=== PATIENT | male | born 1950 | race Caucasian/White ===

== ENCOUNTER 2017-03-31 18:38 | Observation (INO) | payer MEDICARE, MEDICAID ==
[2017-03-31 19:33] LABS: #Basophils 0.1 thou/uL (0.0-0.2); #Eosinphils 0.1 thou/uL (0.0-0.7); #Lymphocytes 1.7 thou/uL (1.20-3.40); #Monocytes 0.8 thou/uL (0.11-0.59); #Neutrophils 4.5 thou/uL (1.40-6.50); %Lymphocytes 23.7 % (21.0-51.0); %Monocytes 10.9 % (0.0-10.0); Mean Platelet Volume 6.5 fL (7.4-10.4); Red Blood Cell (RBC) Count 4.85 mill/uL (4.70-6.10); White Blood Cell (WBC) Count 7.3 thou/uL (4.8-10.8)
[2017-03-31] MEDS ORDERED: Acetaminophen 500 MG TAB ONE (19:43)
[2017-03-31] MEDS ORDERED: Ketorolac Tromethamine 30 MG/ML VIAL ONE (19:43)
--- NOTE | 2017-03-31 19:49 | RAD ---
CHEST PA AND LATERAL: 03/31/17 HISTORY: 66-year-old male with cough and shortness of breath and chest pain. COMPARISON: 07/21/16. FINDINGS: Heart size is within normal limits. The lungs are clear. No evidence of pneumonia, edema, pleural ef fusion, or other acute intrathoracic disease. IMPRESSION: No acute intrathoracic disease. Stable from prior study. POS: [facility]
[2017-03-31 19:59] LABS: ALT (SGPT) 28 U/L (8-55); AST (SGOT) 19 U/L (5-34); Alkaline Phosphatase 73 U/L (40-150); Anion Gap 12 mmol/L (10-20); BUN (Urea Nitrogen) 10 mg/dL (8.4-25.7); Bilirubin, Total 0.3 mg/dL (0.2-1.2); Calc. Creatinine Clearance 0 mL/min (70-130); Calcium 9.2 mg/dL (7.8-10.44); Carbon Dioxide 26 mmol/L (23-31); Chloride 100 mmol/L (98-107); Estimated GFR-MDRD 81; Globulin 3.2 g/dL (2.4-3.5); Protein, Total 7.2 g/dL (5.8-8.1)
[2017-03-31 20:00] LABS: Troponin I 0.059 ng/mL (< 0.028)
[2017-03-31] MEDS ORDERED: hydrALAZINE 20 MG/ML VIAL ONE (22:11)
--- NOTE | 2017-03-31 22:33 | PDOC.EVN ---
Event Note - Event Note Event Note: [id number] 1. Headache 2. chest pain 3. HTN uncontrolled 4, H/O SCIZOAFFECTIVE DISORDER 5. dm TYPE 2 PLAN: SEE ORDERS
--- NOTE | 2017-03-31 22:44 | CT ---
EXAM: NONCONTRAST HEAD CT 03/31/17 HISTORY: Headache x4 days. Hypertension. COMPARISON: None. TECHNIQUE: Noncontrast head CT is performed from skull base to skull vertex. FINDINGS: No parenchymal hemorrhage. No extra-axial hematoma. No midline shift. Basilar cisterns are patent. B rain volume, age appropriate. Cortical sultana-white matter differentiation is preserved. Ventricles and sulci are patent and symmetric. Calvarium is intact. Adequate aeration of mastoid air cells. There is bilateral maxillary sinus, bilateral sphenoid sinus, and frontal sinus/ethmoid air cell opacification. Correlate for sinus disease. IMPRESSION: 1. No acute intracranial process. 2. Sinus disease. POS: [facility]
[2017-03-31 23:11] LABS: Troponin I Less than 0.010 ng/mL (< 0.028)
[2017-03-31] MEDS ORDERED: Acetaminophen 325 MG TAB PO PRN (23:31)
[2017-03-31] MEDS ORDERED: HYDROcodone/Acetaminophen 5/325 mg Tablet PO PRN (23:31)
[2017-03-31] MEDS ORDERED: Ondansetron HCl/PF 4 MG/2 ML Vial IVP PRN (23:31)
[2017-03-31] MEDS ORDERED: Fluticasone Propionate Nasal Spray 16 gm Bottle NASAL PRN (23:34)
[2017-03-31] MEDS ORDERED: ALPRAZolam 0.5 MG TAB PO PRN (23:34)
[2017-03-31] MEDS ORDERED: HumaLOG 300 UNITS/3 ML VIAL SC PRN ×2 (23:36)
[2017-03-31] MEDS ORDERED: Dextrose 50% Abboject 50 ML SYRINGE SLOW IVP PRN (23:36)
[2017-03-31] MEDS ORDERED: Dextrose 5% in Water 1,000 ML IV PRN (23:36)
[2017-04-01 00:08] VITALS: BMI 32.2
[2017-04-01] MEDS: Acetaminophen/Codeine 30-300mg Tablet PO PRN ×3 (00:35→14:50)
[2017-04-01 01:26] LABS: Troponin I Less than 0.010 ng/mL (< 0.028)
--- NOTE | 2017-04-01 02:47 | HP ---
CHIEF COMPLAINT: Headache and chest pain. HISTORY OF PRESENT ILLNESS: Patient is a 66-year-old male with past medical history of schizoaffect kemar disorder, BPH, diabetes mellitus type 2, hypertension and anxiety, who came in today complaining of headache. Patient says he is having headache for the past 3 days. Headache is all over, dull k ind of headache, associated with nausea. Patient stated his headache is more like migraine headache , had similar headaches in the past also. Patient also complains of elevated blood pressure. Blood pressure at home was elevated, so he came to the ER. He complaints of chest pain. Chest pain has persisted for the past several months, intermittent, spasm kind of pain, mild in intensity, no aggra vating factors, no alleviating factors. Today, the pain got worse that is why he came to the ER. D enies any fever, denies any chills. Positive for nausea. Denies any vomiting, denies any diarrhea. PAST MEDICAL HISTORY: As per HPI. PAST SURGICAL HISTORY: Urethral dilatation. SOCIAL HISTORY: Denies smoking, denies alcohol, denies any drugs. FAMILY HISTORY: Positive for heart problems. MEDICATIONS: Reviewed. REVIEW OF SYSTEMS: Constitutional: Denies any fever, denies any chills. Eyes: Denies any vision problems. Ears: Denies any hearing loss. Neck: Denies any neck pain. Cardiovascular System: Po sitive for chest pain. Respiratory System: Denies any cough, denies sputum production. Gastrointe stinal: Denies nausea, denies vomiting. Integumentary: Denies any rash. Musculoskeletal: Denies any joint deformities. All other review of systems are reviewed and are negative. PHYSICAL EXAMINATION: CONSTITUTIONAL/VITAL SIGNS: At the time of H\T\P performed, blood pressure is 170/118, respiration 18 and pulse ox 97%. GENERAL: The patient appears comfortable. HEENT: Pupils are equal, round and reactive. Anterior nares patent. Nose normal. Ears normal. T eeth intact. Tongue is moist. NECK: Supple. No JVD. CARDIOVASCULAR SYSTEM: S1 and S2 present. Regular rate and rhythm. No murmurs, no rubs, no gallop s. RESPIRATORY SYSTEM: No wheezing, no rhonchi. Breath sounds bilaterally. GASTROINTESTINAL: Abdomen is soft and nontender. No guarding, no organomegaly, no masses felt. MUSCULOSKELETAL: No edema. INTEGUMENT: No rashes seen. PSYCHIATRIC: Mood is appropriate at this time. CRANIAL NERVOUS SYSTEM: Cranial nerve is intact. Follows commands. Strength is intact. Sensory i s intact. LABORATORY DATA: At the time of H\T\P performed, white count 7.3, hemoglobin 14.7 and platelet coun t is 269. Sodium 134, potassium 2.9, chloride 100, CO2 of 26, BUN of 10, creatinine 0.93, glucose 2 64, calcium 9.2, total bilirubin 0.3, AST 19, ALT 28, alkaline phosphatase 73, troponin 0.59 and alb umin 4. ASSESSMENT AND PLAN: The patient is a 66-year-old male. 1. Chest pain appears chronic. EKG showed some Q-waves in lead I and aVL, poor R-wave progression. Plan to monitor the patient closely. Plan to check cardiac enzymes. 2. Hypertension, uncontrolled. Monitor blood pressure. Continue home blood pressure medications. We will do p.r.n. hydralazine. 3. Headache. Plan to check CTA to rule out any other etiology. 4. History of diabetes mellitus type 2. Monitor blood sugars. We will do insulin sliding scale. The case was discussed in detail with the patient. Patient is a FULL CODE.
[2017-04-01 05:06] LABS: #Eosinphils 0.2 thou/uL (0.0-0.7); #Lymphocytes 1.9 thou/uL (1.20-3.40); #Monocytes 0.7 thou/uL (0.11-0.59); %Basophils 0.7 % (0.0-1.0); %Eosinophils 2.6 % (0.0-10.0); %Lymphocytes 32.5 % (21.0-51.0); %Monocytes 12.1 % (0.0-10.0); Hematocrit 42.4 % (42.0-52.0); Mean Platelet Volume 6.4 fL (7.4-10.4); White Blood Cell (WBC) Count 5.8 thou/uL (4.8-10.8)
[2017-04-01 05:30] LABS: Anion Gap 12 mmol/L (10-20); BUN (Urea Nitrogen) 7 mg/dL (8.4-25.7); Calc. Creatinine Clearance 118 mL/min (70-130); Calcium 8.5 mg/dL (7.8-10.44); Carbon Dioxide 26 mmol/L (23-31); Chloride 104 mmol/L (98-107); Estimated GFR-MDRD Greater than 90
[2017-04-01 05:32] LABS: Troponin I Less than 0.010 ng/mL (< 0.028)
[2017-04-01] MEDS ORDERED: metFORMIN 500 MG TAB PO SCH (08:15)
[2017-04-01] MEDS ORDERED: Mometasone/Formoterol 120 PUFF INHALER INH SCH ×2 (08:15→18:30)
[2017-04-01] MEDS ORDERED: glipiZIDE 5 MG TAB PO SCH (09:00)
[2017-04-01] MEDS ORDERED: Venlafaxine HCl 37.5 MG TAB PO SCH (09:00)
[2017-04-01] MEDS ORDERED: FLU VACC TS2017-18 (>65YR) 0.5 ML SYRINGE IM ONE (09:00)
[2017-04-01] MEDS ORDERED: Metoprolol Tartrate 25 MG TAB PO SCH (09:00)
[2017-04-01] MEDS ORDERED: NIFEdipine XL 60 MG TAB PO SCH (09:00)
[2017-04-01] MEDS ORDERED: Aspirin 81 mg Enteric Coated Tablet PO SCH (09:00)
[2017-04-01] MEDS ORDERED: Finasteride 5 MG TAB PO SCH (09:00)
[2017-04-01] MEDS ORDERED: Furosemide 20 MG TAB PO SCH (09:00)
[2017-04-01] MEDS ORDERED: Famotidine 20 MG TAB PO SCH (09:00)
[2017-04-01] MEDS ORDERED: NAPROXEN 500 MG PO SCH ×2 (10:15→10:16)
[2017-04-01] MEDS ORDERED: NIFEdipine XL 90 MG TAB PO SCH (10:15)
[2017-04-01] MEDS ORDERED: PROVENTIL INHALER 6.7 G (200 INHALATIONS) INH SCH ×2 (10:30→18:30)
[2017-04-01] MEDS ORDERED: guaiFENesin ER 600 MG TAB PO SCH ×2 (10:30→21:00)
[2017-04-01] MEDS ORDERED: Naproxen 500 MG TAB PO SCH (10:45)
[2017-04-01] MEDS: metFORMIN 500 MG TAB PO SCH ×2 (10:58→18:30)
[2017-04-01] MEDS: Heparin 5,000 UNITS/ML VIAL SC SCH ×2 (10:59→16:16)
--- NOTE | 2017-04-01 12:03 | PDOC.PN ---
- Subjective Encounter Start Date: 04/01/17 Encounter Start Time: 12:01 Subjective: c/o migraine and nausea with it -: chest pain persists .ongoing for months.no SOB/palpitations - Objective MAR Reviewed: Yes Vital Signs & Weight: Vital Signs (12 hours) Temp Pulse Resp BP BP Pulse Ox 04/01/17 11:26 92 16 04/01/17 11:25 92 16 04/01/17 10:58 98.1 F 98 20 176/89 H 96 04/01/17 10:57 95 04/01/17 08:00 97.9 F 95 16 04/01/17 07:08 97.9 F 95 16 180/94 H 95 04/01/17 02:19 98.5 F 82 16 170/96 H 95 Weight Weight 212 lb 3.2 oz I&O: 03/31/17 04/01/17 04/02/17 06:59 06:59 06:59 Intake Total 480 Balance 480 Result Diagrams: 04/01/17 04:18 04/01/17 04:18 Additional Labs: Accuchecks 04/01/17 11:12 POC Glucose 281 H Laboratory Tests 03/31/17 03/31/17 04/01/17 19:20 22:37 00:53 Troponin I 0.059 H Less than 0.010 Less than 0.010 04/01/17 04:18 Troponin I Less than 0.010 Phys Exam - Physical Examination Constitutional: NAD HEENT: PERRLA, moist MMs, sclera anicteric, oral pharynx no lesions Neck: no nodes, no JVD, supple, full ROM Respiratory: no wheezing, no rales, no rhonchi, clear to auscultation bilateral Cardiovascular: RRR, no significant murmur, no rub, gallop Gastrointestinal: soft, non-tender, no distention, positive bowel sounds Musculoskeletal: no edema, pulses present Neurological: non-focal, normal sensation, moves all 4 limbs Psychiatric: normal affect, A&O x 3 Skin: no rash Dx/Plan (1) Chest pain Code(s): R07.9 - CHEST PAIN, UNSPECIFIED Status: Acute Comment: Alexis Non cardiac.cardiac Cath Nl in 2014 with normal stress test 06/2016 (2) Hypertensive urgency Code(s): I10 - ESSENTIAL (PRIMARY) HYPERTENSION Status: Acute (3) Schizoaffective disorder Code(s): F25.9 - SCHIZOAFFECTIVE DISORDER, UNSPECIFIED Status: Chronic Qualifiers: Schizoaffective disorder type: bipolar Qualified Code(s): F25.0 - Schizoaffective disorder, bipolar type (4) BPH (benign prostatic hyperplasia) Code(s): N40.0 - BENIGN PROSTATIC HYPERPLASIA WITHOUT LOWER URINRY TRACT SYMP Status: Chronic (5) Bipolar disorder Code(s): F31.9 - BIPOLAR DISORDER, UNSPECIFIED Status: Chronic (6) CKD (chronic kidney disease) stage 2, GFR 60-89 ml/min Code(s): N18.2 - CHRONIC KIDNEY DISEASE, STAGE 2 (MILD) Status: Chronic (7) Chronic migraine Code(s): G43.709 - CHRONIC MIGRAINE W/O AURA, NOT INTRACTABLE, W/O STAT MIGR Status: Chronic (8) HTN (hypertension) Code(s): I10 - ESSENTIAL (PRIMARY) HYPERTENSION Status: Chronic - Plan DVT proph w/SCDs add naproxen for migraine. -: provide beter BP control. -: no evidence of ACS,cardiology recs requested. -: advised Pt to f/u w Gi for endoscopy to r/o esophagitis.esopahgeal spasm -: cont PPI.add Inhalers for cough w h/o asthma * .may DC home later today if BP better and cleared by cardiology Review of Systems - Review of Systems Constitutional: Malaise Cardiovascular: Chest Pain. negative: Palpitations, Orthopnea, Paroxysmal Noc. Dyspnea, Edema, Light Headedness, Other Gastrointestinal: negative: Nausea, Vomiting, Abdominal Pain, Diarrhea, Constipation, Melena, Hematochezia, Other Genitourinary: negative: Dysuria, Frequency, Incontinence, Hematuria, Retention , Other Musculoskeletal: negative: Neck Pain, Shoulder Pain, Arm Pain, Back Pain, Hand Pain, Leg Pain, Foot Pain, Other Neurological: negative: Weakness, Numbness, Incoordination, Change in Speech, Confusion, Seizures, Other - Medications/Allergies Allergies/Adverse Reactions: Allergies Allergy/AdvReac Type Severity Reaction Status Date / Time diltiazem [From Cardizem] Allergy Verified 06/23/16 22:05 lisinopril Allergy Verified 06/23/16 22:05 metoclopramide [From Reglan] Allergy Verified 04/01/17 00:02 sumatriptan [From Imitrex] Allergy Verified 04/01/17 00:02 Medications: Current Medications Acetaminophen (Tylenol) 650 mg PO Q4H PRN PRN Reason: Headache/Fever or Pain Acetaminophen/Codeine Phosphate (Tylenol #3) 1 tab PO Q4HR PRN PRN Reason: Pain 4-6 Last Admin: 04/01/17 08:29 Dose: 1 tab Hydrocodone Bitart/Acetaminophen (Mauldin 5/325) 1 tab PO Q4H PRN PRN Reason: Moderate Pain (4-6) Albuterol Sulfate (Proventil Hfa) 2 puff INH BID-RT [facility] Albuterol Sulfate (Proventil Hfa) [address] [facility] Stop: 04/01/17 13:00 Last Admin: 04/01/17 11:25 Dose: 2 puff Alprazolam (Xanax) 0.5 mg PO DAILY PRN PRN Reason: Anxiety Aspirin (Ecotrin) [address] [facility] Last Admin: 04/01/17 10:59 Dose: 81 mg Atorvastatin Calcium (Lipitor) [address] [facility] Dextrose/Water (Dextrose 50%) 25 gm SLOW IVP PRN PRN PRN Reason: Hypoglycemia Famotidine (Pepcid) [address] [facility] Last Admin: 04/01/17 10:59 Dose: 20 mg Finasteride (Proscar) [address] [facility] Last Admin: 04/01/17 10:59 Dose: 5 mg Fluticasone Propionate (Flonase Nasal Sunflower) 0 gm NASAL PRN PRN PRN Reason: Nasal Congestion Furosemide (Lasix) [address] [facility] Last Admin: 04/01/17 10:59 Dose: 20 mg Glipizide (Glucotrol) [address] [facility] Last Admin: 04/01/17 10:59 Dose: 5 mg Glucagon (Glucagon) 1 mg IM PRN PRN PRN Reason: Hypoglycemia Guaifenesin (Mucinex) [address] [facility] Guaifenesin (Mucinex) [address] [facility] Stop: 04/01/17 13:00 Last Admin: 04/01/17 10:58 Dose: 600 mg Heparin Sodium (Porcine) (Heparin) 5,[address] [facility] Last Admin: 04/01/17 10:59 Dose: 5,000 units Dextrose/Water (D5w) 1,000 mls @ 0 mls/hr IV .Q0M PRN; As Directed PRN Reason: Hypoglycemia Insulin Human Lispro (Humalog) 0 units SC .MODERATE SLIDING SC PRN PRN Reason: Moderate Correctional Scale Insulin Human Lispro (Humalog) 0 units SC .BEDTIME SLIDING SC PRN PRN Reason: Bedtime Correctional Scale Losartan Potassium (Cozaar) [address] [facility] Metformin HCl (Glucophage) 500 mg PO BID-WM [facility] Last Admin: 04/01/17 10:58 Dose: 500 mg Metoprolol Tartrate (Lopressor) [address] [facility] Last Admin: 04/01/17 10:59 Dose: 25 mg Mometasone Furoate/Formoterol Fumar (Dulera 100 Mcg/5 Mcg Inhaler) 2 puff INH BID-RT [facility] Naproxen (Naprosyn) [address] [facility] Stop: 04/01/17 14:00 Last Admin: 04/01/17 10:58 Dose: 750 mg Nifedipine (Procardia Xl) [address] [facility] Nifedipine (Procardia Xl) [address] [facility] Stop: 04/01/17 12:15 Last Admin: 04/01/17 10:57 Dose: 90 mg Olanzapine (Zyprexa) [address] [facility] Ondansetron HCl (Zofran) 4 mg IVP Q6H PRN PRN Reason: Nausea/Vomiting Pantoprazole Sodium (Protonix) [address] [facility] Last Admin: 04/01/17 10:58 Dose: 40 mg Venlafaxine HCl (Effexor) 37.[address] [facility] Last Admin: 04/01/17 11:16 Dose: Not Given
--- NOTE | 2017-04-01 13:12 | CON ---
DATE OF CONSULTATION: 04/01/2017 REASON FOR CONSULTATION: Hypertension and chest pain. HISTORY OF PRESENT ILLNESS: Mr. Gonzales is a 66-year-old gentleman previously seen and evaluat ed by Dr. Cooney. The patient had a negative stress test in 2014, but continued to have chest pa in and underwent cardiac catheterization and had no significant coronary artery disease. Patient wa s readmitted to the hospital yesterday with headaches and uncontrolled hypertension. The blood pres sure even on arrival to the floor here was 190/98. He has some chest pain that hurts more with a de ep breath. His main complaint is headache. MEDICATIONS: Included: 1. Procardia-XL (nifedipine) 60 mg a day. 2. Losartan 50 mg a day. 3. Metoprolol 25 mg twice a day. 4. Inhaled bronchodilators. PHYSICAL EXAMINATION: GENERAL: This is a pleasant gentleman. VITAL SIGNS: Blood pressure 180/94; pulse 95, regular. LUNGS: Clear. CARDIAC: Normal S1 and S2. ABDOMEN: Soft, nontender. EXTREMITIES: No clubbing, cyanosis, or edema. ASSESSMENT: 1. Chest pain, atypical for angina. 2. Normal coronary arteries on catheterization in 2014. 3. Hypertension, difficult to control, uncontrolled. PLAN: 1. Increase nifedipine to 90 mg daily. 2. Continue beta elly. 3. Continue angiotensin receptor elly. 4. From a cardiac standpoint, the patient could be released home to follow up with Dr. Cooney as an outpatient.
[2017-04-01 15:17] VITALS: BP 127/66; TEMP 97.4
[2017-04-01] MEDS ORDERED: diphenhydrAMINE 12.5 MG/5 ML UDCUP PO SCH (15:45)
[2017-04-01] MEDS ORDERED: Losartan Potassium 25 MG TAB PO SCH ×2 (21:00)
[2017-04-01] MEDS ORDERED: Atorvastatin Calcium 10 MG TAB PO SCH (21:00)
[2017-04-01] MEDS ORDERED: OLANZapine 5 MG TAB PO SCH (21:00)
[2017-04-02] MEDS ORDERED: NIFEdipine XL 90 MG TAB PO SCH (09:00)
--- NOTE | 2017-04-02 22:38 | DIS ---
DATE OF ADMISSION: 03/31/2017 DATE OF DISCHARGE: 04/01/2017 CONDITION AT THE TIME OF DISCHARGE: Stable and improved. DISCHARGE DISPOSITION: Home. PRIMARY CARE PHYSICIAN: Dr. Eran Max. DISCHARGE FOLLOWUP: With Cardiology and PCP. DISCHARGE MEDICATIONS: As follows. 1. Advair 2 puffs b.i.d. 2. Metoprolol tartrate 25 mg p.o. b.i.d. 3. Losartan dose has been increased to 100 mg p.o. daily. 4. Nifedipine dose has been increased to 90 mg p.o. daily. 5. Effexor 37.5 daily. 6. Metformin 500 p.o. b.i.d. 7. Zyprexa 5 mg daily. 8. Tylenol with codeine #3 as needed every 4 hours. 9. Aspirin 81 mg daily. 10. Lipitor 10 mg daily. 11. Fluticasone nasal spray daily. 12. Glucotrol 5 mg daily. CONSULTATIONS: Include Cardiology, Dr. Urrutia. PROCEDURES IN THE HOSPITAL: Include chest x-ray as well as CT scan of the brain, which are both unr emarkable. No acute processes noticed. DISCHARGE DIAGNOSES: 1. Chest pain, noncardiac, likely related to hypertensive urgency and anxiety. 2. Hypertensive urgency. 3. Bipolar disorder and anxiety. 4. Schizoaffective disorder. 5. Chronic kidney disease. 6. Chronic migraine. 7. History of hypertension. ADMISSION HISTORY: Mr. Gonzales is a 66-year-old male with past medical history of multiple pre sentations to the hospital and admissions for chest pain with a negative cardiac workup so far inclu ding a stress test and cardiac catheterization last in 2014, who presented again with complaints of headache and chest pain. Upon presentation, he was found to have elevated blood pressure. He was h emodynamically stable at the time of presentation and his blood pressure was 170/118 upon presentati on. His cardiac enzymes were unremarkable and he was admitted overnight in telemetry unit for obser vation and ACS workup. EKG showed some Q-waves in lead 1 and aVL with poor R-wave progression. Ser ial cardiac enzymes were ordered and home medications were started and p.r.n. antihypertensives were ordered. Please see admission history and physical for further details. HOSPITAL COURSE: His cardiac enzymes trended negative. Cardiology was consulted given the presenta tion with chest pain multiple times. Dr. Urrutia saw the patient and he agreed that his chest pain w as most likely secondary to uncontrolled hypertension. He adjusted his medication by increasing his nifedipine to 90 mg daily and increasing his losartan to 100 mg daily. Beta-elly was continued. He had a negative stress test and cardiac catheterization in 2014. Eventually, the patient recovered and remained hemodynamically stable. He did not have any telemetr y changes or cardiac events while in the hospital. He did have some migraine for which he was given naproxen, which resolved his pain. He did exhibit severe anxiety about discharge and was reassured . He was seen and examined prior to discharge. Discharge plan was discussed with him and he verbalize s understanding. Discharging blood pressure was 127/66. New prescriptions were provided and he was instructed to follow up with his own reel hooker Dr. Cooney as an outpatient. Please see [facility] progress note from the date of discharge for further detail including [id number] interactio n.
--- NOTE | 2017-04-08 20:10 | EKG ---
Test Reason : Blood Pressure : / mmHG Vent. Rate : 080 BPM Atrial Rate : 080 BPM P-R Int : 162 ms QRS Dur : 094 ms QT Int : 390 ms P-R-T Axes : 057 -38 012 degrees QTc Int : 449 ms Normal sinus rhythm Left axis deviation Left ventricular hypertrophy Abnormal ECG Confirmed by MAICOL BOWERS D.O. ([id number]), editor producer KATRIN EDGE ([id number]) on 04/08/2017 8:10:30 PM Referred By: Confirmed By:MAICOL BOWERS D.O.
== END 2017-04-01 19:08 | disposition home or self-care (01) ==
LOC: ERS 18:38 → 2SW 21:41
PROVIDERS: ADMIT Internal Medicine; ATTEND Internal Medicine
DX: R07.89 Other chest pain (principal); I16.0 Hypertensive urgency; F31.9 Bipolar disorder, unspecified; F41.9 Anxiety disorder, unspecified; F25.9 Schizoaffective disorder, unspecified; E11.22 Type 2 diabetes mellitus with diabetic chronic kidney disease; I12.9 Hypertensive chronic kidney disease with stage 1 through stage 4 chronic kidney disease, or unspecified chronic kidney disease; N18.2 Chronic kidney disease, stage 2 (mild); N40.0 Benign prostatic hyperplasia without lower urinary tract symptoms; G43.709 Chronic migraine without aura, not intractable, without status migrainosus; Z79.84 Long term (current) use of oral hypoglycemic drugs; Z79.82 Long term (current) use of aspirin; Z79.51 Long term (current) use of inhaled steroids; Z79.899 Other long term (current) drug therapy; Z88.8 Allergy status to other drugs, medicaments and biological substances; Z98.890 Other specified postprocedural states
CPT/HCPCS: 70450; 71020; 80048; 80053; 82553; 82962 ×2; 84484 ×3; 85025 ×2; 93005; 94640; 96361; 96374; 96375; 99285; G0378 ×2; 36415; 36416; J0360; J1644; J1885

== ENCOUNTER 2017-04-18 14:19 | Emergency (ER) | payer MEDICARE, OTHER ==
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
[2017-04-18 15:11] LABS: #Eosinphils 0.2 thou/uL (0.0-0.7); #Lymphocytes 1.1 thou/uL (1.20-3.40); #Monocytes 0.7 thou/uL (0.11-0.59); #Neutrophils 4.1 thou/uL (1.40-6.50); %Basophils 0.1 % (0.0-1.0); %Eosinophils 2.8 % (0.0-10.0); %Lymphocytes 17.7 % (21.0-51.0); %Monocytes 12.1 % (0.0-10.0); Hematocrit 41.6 % (42.0-52.0); Mean Platelet Volume 6.6 fL (7.4-10.4); Red Blood Cell (RBC) Count 4.59 mill/uL (4.70-6.10); White Blood Cell (WBC) Count 6.1 thou/uL (4.8-10.8)
[2017-04-18 15:32] LABS: ALT (SGPT) 22 U/L (8-55); AST (SGOT) 20 U/L (5-34); Alkaline Phosphatase 67 U/L (40-150); Anion Gap 15 mmol/L (10-20); BUN (Urea Nitrogen) 12 mg/dL (8.4-25.7); Bilirubin, Total 0.3 mg/dL (0.2-1.2); CK (CPK) 102 U/L (30-200); Calc. Creatinine Clearance 0 mL/min (70-130); Calcium 8.9 mg/dL (7.8-10.44); Carbon Dioxide 27 mmol/L (23-31); Chloride 97 mmol/L (98-107); Estimated GFR-MDRD 81; Globulin 3.1 g/dL (2.4-3.5); Lipase 30 U/L (8-78)
[2017-04-18 15:37] LABS: Troponin I Less than 0.010 ng/mL (< 0.028)
[2017-04-18 15:50] LABS: PTT 29.7 SEC (22.9-36.1); Prothrombin Time 13.4 SEC (12.0-14.7)
[2017-04-18] MEDS ORDERED: Ketorolac Tromethamine 30 MG/ML VIAL ONE (16:41)
== END 2017-04-18 16:55 | disposition home or self-care (01) ==
LOC: ERS 14:19
DX: M94.0 Chondrocostal junction syndrome [Tietze] (principal); K21.9 Gastro-esophageal reflux disease without esophagitis; I10 Essential (primary) hypertension; E11.9 Type 2 diabetes mellitus without complications; J45.909 Unspecified asthma, uncomplicated; F41.9 Anxiety disorder, unspecified; F25.9 Schizoaffective disorder, unspecified; Z79.82 Long term (current) use of aspirin; Z79.899 Other long term (current) drug therapy
CPT/HCPCS: 36415; 71010; 80053; 82550; 82553; 83690; 84484; 85025; 85610; 85730; 93005; 96374; J1885

== ENCOUNTER 2017-04-23 15:15 | Emergency (ER) | payer MEDICARE, MEDICAID ==
[2017-04-23 15:31] LABS: #Eosinphils 0.1 thou/uL (0.0-0.7); #Lymphocytes 0.8 thou/uL (1.20-3.40); #Monocytes 0.3 thou/uL (0.11-0.59); #Neutrophils 7.6 thou/uL (1.40-6.50); %Eosinophils 0.7 % (0.0-10.0); %Lymphocytes 8.8 % (21.0-51.0); %Monocytes 3.9 % (0.0-10.0); Hematocrit 44.1 % (42.0-52.0); Mean Platelet Volume 6.8 fL (7.4-10.4); Red Blood Cell (RBC) Count 4.87 mill/uL (4.70-6.10); White Blood Cell (WBC) Count 8.7 thou/uL (4.8-10.8)
[2017-04-23 15:38] LABS: PTT 29.8 SEC (22.9-36.1); Prothrombin Time 13.4 SEC (12.0-14.7)
[2017-04-23 15:53] LABS: ALT (SGPT) 27 U/L (8-55); AST (SGOT) 19 U/L (5-34); Alkaline Phosphatase 77 U/L (40-150); Anion Gap 14 mmol/L (10-20); BUN (Urea Nitrogen) 9 mg/dL (8.4-25.7); Bilirubin, Total 0.3 mg/dL (0.2-1.2); CK (CPK) 109 U/L (30-200); Calc. Creatinine Clearance 0 mL/min (70-130); Calcium 9.2 mg/dL (7.8-10.44); Carbon Dioxide 26 mmol/L (23-31); Chloride 99 mmol/L (98-107); Estimated GFR-MDRD 79; Globulin 2.9 g/dL (2.4-3.5); Lipase 28 U/L (8-78); Protein, Total 7.3 g/dL (5.8-8.1)
[2017-04-23 15:57] LABS: Troponin I Less than 0.010 ng/mL (< 0.028)
--- NOTE | 2017-04-23 16:53 | RAD ---
PORTABLE CHEST: Date: 04/23/17 COMPARISON: 04/18/17 study. HISTORY: Chest pain. FINDINGS: Heart size is within normal limits. Mediastinal structures appear unremarkable. Lungs are clear of in filtrates. IMPRESSION: No active intrathoracic disease. POS: [facility]
== END 2017-04-23 17:51 | disposition home or self-care (01) ==
LOC: ERS 15:15
DX: J20.9 Acute bronchitis, unspecified (principal); K21.9 Gastro-esophageal reflux disease without esophagitis; I10 Essential (primary) hypertension; G43.909 Migraine, unspecified, not intractable, without status migrainosus; E11.9 Type 2 diabetes mellitus without complications; J45.909 Unspecified asthma, uncomplicated; F41.9 Anxiety disorder, unspecified; F25.9 Schizoaffective disorder, unspecified; Z79.82 Long term (current) use of aspirin; Z79.899 Other long term (current) drug therapy; Z79.84 Long term (current) use of oral hypoglycemic drugs
CPT/HCPCS: 71010; 80053; 82550; 82553; 83690; 84484; 85025; 85610; 85730; 93005; 94760

== ENCOUNTER 2017-04-25 01:48 | Emergency (ER) | payer MEDICARE, MEDICAID ==
[2017-04-25 02:54] LABS: #Eosinphils 0.1 thou/uL (0.0-0.7); #Lymphocytes 1.8 thou/uL (1.20-3.40); #Neutrophils 5.6 thou/uL (1.40-6.50); %Basophils 0.5 % (0.0-1.0); %Lymphocytes 20.7 % (21.0-51.0); %Monocytes 11.7 % (0.0-10.0); Hematocrit 41.5 % (42.0-52.0); Mean Platelet Volume 6.3 fL (7.4-10.4); Red Blood Cell (RBC) Count 4.51 mill/uL (4.70-6.10); White Blood Cell (WBC) Count 8.5 thou/uL (4.8-10.8)
[2017-04-25 03:17] LABS: ALT (SGPT) 27 U/L (8-55); AST (SGOT) 19 U/L (5-34); Alkaline Phosphatase 69 U/L (40-150); Anion Gap 13 mmol/L (10-20); BUN (Urea Nitrogen) 10 mg/dL (8.4-25.7); Bilirubin, Total 0.3 mg/dL (0.2-1.2); CK (CPK) 82 U/L (30-200); Calc. Creatinine Clearance 0 mL/min (70-130); Carbon Dioxide 29 mmol/L (23-31); Chloride 100 mmol/L (98-107); Estimated GFR-MDRD 71; Globulin 3.4 g/dL (2.4-3.5); Lipase 25 U/L (8-78); Protein, Total 7.6 g/dL (5.8-8.1)
[2017-04-25 03:19] LABS: Troponin I Less than 0.010 ng/mL (< 0.028)
--- NOTE | 2017-04-25 08:25 | RAD ---
FRONTAL RADIOGRAPH CHEST: Date: 04-25-17 Comparison: 04-23-17 History: Shortness of breath, cough, chest pain and back pain. FINDINGS: Mild increased linear interstitial density is noted. Heart and mediastinal contours are unremarkable and unchanged. There is no pneumothorax, pleural fluid, lobar consolidation or alveolar edema. IMPRESSION: Stable appearance of the chest. POS: [facility]
== END 2017-04-25 03:52 | disposition home or self-care (01) ==
LOC: ERS 01:48
DX: R07.2 Precordial pain (principal); E11.9 Type 2 diabetes mellitus without complications; F25.9 Schizoaffective disorder, unspecified; F41.9 Anxiety disorder, unspecified; J45.909 Unspecified asthma, uncomplicated; G43.909 Migraine, unspecified, not intractable, without status migrainosus; I10 Essential (primary) hypertension; K21.9 Gastro-esophageal reflux disease without esophagitis; Z79.82 Long term (current) use of aspirin; Z79.899 Other long term (current) drug therapy
CPT/HCPCS: 36415; 71010; 80053; 82553; 83690; 83880; 84484; 85025; 93005

== ENCOUNTER 2017-05-14 13:58 | Observation (INO) | payer MEDICARE, MEDICAID ==
[2017-05-14] MEDS ORDERED: Water For Inject, Bacteriostat 30 ML ONE (14:55)
[2017-05-14] MEDS ORDERED: methylPREDNISolone Sod Succ/PF 125 MG/2 ML VIAL ONE (14:55)
[2017-05-14] MEDS ORDERED: Ketorolac Tromethamine 30 MG/ML VIAL ONE (14:55)
[2017-05-14] MEDS ORDERED: Promethazine HCl 25 MG/ML VIAL SLOW IVP SCH (16:45)
[2017-05-14] MEDS ORDERED: diphenhydrAMINE 50 MG/ML VIAL ONE (16:46)
[2017-05-14] MEDS ORDERED: Promethazine HCl 12.5 MG in Sodium Chloride 0.9% 50 ML IVPB SCH (17:30)
[2017-05-14 19:49] LABS: #Lymphocytes 0.7 thou/uL (1.20-3.40); #Monocytes 0.2 thou/uL (0.11-0.59); #Neutrophils 6.8 thou/uL (1.40-6.50); %Basophils 0.1 % (0.0-1.0); %Eosinophils 0.4 % (0.0-10.0); %Lymphocytes 8.9 % (21.0-51.0); Hematocrit 43.4 % (42.0-52.0); Mean Platelet Volume 6.7 fL (7.4-10.4); Red Blood Cell (RBC) Count 4.77 mill/uL (4.70-6.10); White Blood Cell (WBC) Count 7.6 thou/uL (4.8-10.8)
[2017-05-14 19:54] LABS: Prothrombin Time 13.7 SEC (12.0-14.7)
[2017-05-14 20:08] LABS: ALT (SGPT) 23 U/L (8-55); AST (SGOT) 15 U/L (5-34); Alkaline Phosphatase 71 U/L (40-150); Anion Gap 12 mmol/L (10-20); BUN (Urea Nitrogen) 12 mg/dL (8.4-25.7); Bilirubin, Total 0.2 mg/dL (0.2-1.2); Calc. Creatinine Clearance 0 mL/min (70-130); Carbon Dioxide 25 mmol/L (23-31); Chloride 103 mmol/L (98-107); Estimated GFR-MDRD 79; Globulin 3.3 g/dL (2.4-3.5); Protein, Total 7.3 g/dL (5.8-8.1)
[2017-05-14 20:13] LABS: Troponin I Less than 0.010 ng/mL (< 0.028)
--- NOTE | 2017-05-14 20:20 | CT ---
CT HEAD NONCONTRAST: Date: 05/14/17 COMPARISON: 03/31/17. CLINICAL HISTORY: Headache, chronic migraines. FINDINGS: There is no evidence of acute intracranial hemorrhage, mass effect, or midline shift. Ventricular sys tem is appropriate in size. There is scattered paranasal sinus opacification. A fluid level is partia lly visualized within the left maxillary sinus. IMPRESSION: 1. No acute intracranial abnormalities. 2. Scattered areas of paranasal sinus opacification as discussed above. Correlate clinically. POS: [facility]
--- NOTE | 2017-05-14 20:32 | RAD ---
PORTABLE UPRIGHT FRONTAL CHEST RADIOGRAPH: Date: 05/14/17 COMPARISON: 04/25/17. HISTORY: Headaches and chest pain. FINDINGS: No pneumothorax, pleural fluid, focal consolidation, or alveolar edema. Heart and mediastinal contour s are stable. IMPRESSION: No acute findings. POS: [facility]
[2017-05-14] MEDS ORDERED: Acetaminophen 500 MG TAB ONE (21:10)
[2017-05-14 23:39] VITALS: BMI 32.3
[2017-05-14] MEDS ORDERED: Lactated Ringer's 1,000 ML IV SCH (23:45)
[2017-05-14] MEDS ORDERED: Ondansetron HCl/PF 4 MG/2 ML Vial IVP PRN (23:57)
[2017-05-14] MEDS ORDERED: Acetaminophen 325 MG TAB PO PRN (23:57)
[2017-05-14] MEDS ORDERED: Ondansetron ODT 4 MG TAB SL PRN (23:57)
[2017-05-15] MEDS ORDERED: Ondansetron ODT 4 MG TAB PO PRN (01:46)
[2017-05-15] MEDS ORDERED: Ondansetron HCl/PF 4 MG/2 ML Vial IVP PRN (01:46)
[2017-05-15] MEDS ORDERED: Senokot 8.6 MG TAB PO PRN (01:46)
[2017-05-15] MEDS ORDERED: Nitroglycerin 0.4 MG TAB (25 Tab Bottle) PO PRN (01:47)
[2017-05-15] MEDS ORDERED: Dextrose 50% Abboject 50 ML SYRINGE SLOW IVP PRN (01:49)
[2017-05-15] MEDS ORDERED: Insulin Regular 300 UNITS/3 ML VIAL SC PRN (01:49)
[2017-05-15] MEDS ORDERED: Dextrose 5% in Water 1,000 ML IV PRN (01:49)
[2017-05-15] MEDS ORDERED: hydrALAZINE 20 MG/ML VIAL SLOW IVP PRN (01:59)
--- NOTE | 2017-05-15 02:37 | HP ---
DATE OF ADMISSION: 05/14/2017 The patient was seen and examined on 05/14/2017 PRIMARY CARE PHYSICIAN: Eran Max MD PRIMARY NEUROLOGIST: Eh Hubbard MD CHIEF COMPLAINT: Intractable headache. HISTORY OF PRESENT ILLNESS: The patient is a 66-year-old white male with chronic migraine headaches, hypertension, and bipolar disorder who presented to the emergency room with intractable headache. Patient has history of chronic migraines and is followed by Dr. Hubbard. He recently had some medica tion adjustment per Dr. Hubbard. Patient is unable to recall the exact details. Over the last 24 ho urs, the patient developed intractable headache that was more or less generalized, right more than le ft, associated with some blurriness of vision. 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 However, this time he had new tingling on the right side of his body includin g the face associated with weakness for which he presented to the emergency room. He felt nauseous; however, denies any vomiting. His vision was somewhat blurry. He denies any chest pain, palpitation s, or syncope. He also had photophobia. No seizures or double vision reported. In the emergency room, initial vital signs showed temperature 97.7, respirations 16, pulse rate of 61 , blood pressure 167/84 with O2 saturation of 97% on room air. His maximum blood pressure in the [facility] room was 191/108. He received aspirin, 125 Solu-Medrol, 30 mg Toradol, IV fluids, and Benadry l with some improvement in his headache. His NIH in the emergency room was 2. PAST MEDICAL HISTORY: 1. Chronic migraine headaches. 2. Benign prostatic hypertrophy. 3. Schizoaffective disorder/bipolar disorder. 4. Obesity with a BMI of 32.4. 5. Hypertension. 6. Impaired glucose tolerance. PAST SURGICAL HISTORY: Ureteral dilatation. ALLERGIES: Patient is allergic to sumatriptan, diltiazem, lisinopril, and Reglan. CURRENT HOME MEDICATIONS: Patient is unable to recall any of his home medications. We will try to o btain an accurate list of medications. He also had some medication changes per Dr. Hubbard recently. SOCIAL HISTORY: Patient currently lives at home. No smoking, alcohol, or drug use. FAMILY HISTORY: Father with migraine. REVIEW OF SYSTEMS: The following complete review of systems was negative, unless otherwise mentioned in the HPI or below: Constitutional: Weight loss or gain, ability to conduct usual activities. Sk in: Rash, itching. Eyes: Double vision, pain. ENT/Mouth: Nose bleeding, neck stiffness, pain, te nderness. Cardiovascular: Palpitations, dyspnea on exertion, orthopnea. Respiratory: Shortness of breath, wheezing, cough, hemoptysis, fever or night sweats. Gastrointestinal: Poor appetite, abdom inal pain, heartburn, nausea, vomiting, constipation, or diarrhea. Genitourinary: Urgency, frequenc y, dysuria, nocturia. Musculoskeletal: Pain, swelling. Neurologic/Psychiatric: Anxiety, depressio n. Allergy/Immunologic: Skin rash, bleeding tendency. PHYSICAL EXAMINATION: VITAL SIGNS: As discussed above. GENERAL: A 66-year-old male in no apparent distress. Headache is improved. HEENT: Head, atraumatic, normocephalic. Sclerae are anicteric. Moist mucous membranes. No oral le dane. NECK: Supple. No JVD appreciated. No carotid bruit. LUNGS: Clear to auscultation bilaterally. HEART: S1, S2 present. Regular rate and rhythm. No murmur, rubs, or gallops appreciated. ABDOMEN: Soft, nontender, bowel sounds present. No rebound or guarding. EXTREMITIES: No edema or calf tenderness. NEUROLOGIC: Cranial nerves II through XII were normal on examination. Power was 5/5 in the left upp er and left lower extremity. He had some paresthesias in the right upper and right lower extremity. There was very minimal weakness in the right upper and right lower extremity. Gait was not assessed . PSYCHIATRY: Alert, awake, oriented x3. SKIN: Warm and dry. LYMPH NODES: No palpable lymph nodes in the neck. PERIPHERAL VASCULAR: Radial pulses palpable bilaterally. MUSCULOSKELETAL: No joint swelling or tenderness. LABORATORY FINDINGS: CBC showed WBC 7.6, hemoglobin 14.8, hematocrit 43.4, platelets 249. PT/INR in normal range. Chemistries showed sodium 136, potassium 4, chloride 103, bicarbonate 25, BUN 12, cre atinine 0.95, glucose of 215. Troponins were normal. IMAGING: Chest x-ray by my review was negative for infiltrate or edema. EKG by my review showed sin us rhythm with voltage criteria for left ventricular hypertrophy. CT scan of the brain was negative for acute findings. Cardiolite stress test earlier this year was negative. IMPRESSION: 1. Intractable headache. Possibilities include acute migraine versus cerebrovascular accident. The patient has right-sided weakness with numbness. We will start him on aspirin. We will get an MRI o f the brain. We will consult Dr. Hubbard who is the primary neurologist. We will continue frequent neuro checks. 2. Diabetes mellitus type 2. We will start him on insulin sliding scale. 3. Hypertension with hypertensive urgency in the emergency room, probably precipitated by migraine. We will resume his home medications once confirmed. We will add p.r.n. antihypertensives. 4. Obesity with a body mass index of 32.4. Lifestyle modification was emphasized. 5. Schizoaffective disorder/bipolar disorder. We will resume home medications once confirmed. 6. Benign prostatic hypertrophy. Plan of care was discussed with the patient in detail. He stated understanding. We will continue as pirin for now.
[2017-05-15] MEDS: Acetaminophen 325 MG TAB PO PRN ×3 (04:42→14:14)
[2017-05-15] MEDS: Insulin Regular 300 UNITS/3 ML VIAL SC PRN ×2 (06:27→12:43)
[2017-05-15] MEDS ORDERED: Fluticasone Propionate Nasal Spray 16 gm Bottle NASAL PRN (06:35)
[2017-05-15] MEDS ORDERED: metFORMIN 500 MG TAB PO SCH (08:00)
[2017-05-15] MEDS ORDERED: glipiZIDE 5 MG TAB PO SCH (08:00)
[2017-05-15] MEDS: hydrALAZINE 25 MG TAB PO SCH ×2 (08:07→14:12)
[2017-05-15] MEDS ORDERED: FLU VACC TS2017-18 (>65YR) 0.5 ML SYRINGE IM ONE (09:00)
[2017-05-15] MEDS ORDERED: FLUTICASONE INH SCH (09:00)
[2017-05-15] MEDS ORDERED: SALMETEROL INH SCH (09:00)
[2017-05-15] MEDS ORDERED: Aspirin 81 mg Enteric Coated Tablet PO SCH ×2 (09:00)
[2017-05-15] MEDS ORDERED: Venlafaxine HCl 37.5 MG TAB PO SCH (09:00)
[2017-05-15] MEDS ORDERED: Metoprolol Tartrate 25 MG TAB PO SCH (09:00)
[2017-05-15] MEDS ORDERED: Ketorolac Tromethamine 30 MG/ML VIAL IVP PRN (11:35)
--- NOTE | 2017-05-15 11:41 | MRI ---
BRAIN MRI WITHOUT CONTRAST: 05/15/2017 HISTORY: Headaches. Chronic migraines. COMPARISON: 06/16/2015 TECHNIQUE: Multiplanar, multisequence MR imaging of the brain is obtained without contrast. FINDINGS: There is extensive new polypoid mucosal thickening involving the maxillary sinus on the left. There is extensive worsening of bilateral ethmoid air cell opacification, and there is new mucosal thickeni ng of the bilateral sphenoid sinuses and frontal sinuses, as well as the right maxillary sinus, with a right sided sphenoid sinus air-fluid level. The axial gradient echo imaging demonstrates a focus of blooming artifact within the ventral aspect o f the globus pallidus on the left. There is a similar focus within the subcortical white matter of t he medial right frontal lobe. These findings are stable and suggest remote microhemorrhage and/or pu nctate calcification. There are a few scattered foci of increased T2 signal in the periventricular and subcortical white ma tter, suggesting minimal small vessel disease. The regional bone marrow signal intensity appears within normal limits. The diffusion weighted imaging demonstrates no evidence for acute infarction. Arterial flow voids at the axial level of the skull base are grossly unremarkable on the T2 weighted imaging. IMPRESSION: 1. No evidence of acute infarction or intracranial hemorrhage. 2. Extensive paranasal sinus disease, significantly worsened since the prior examination. Acute sin usitis is a possibility. 3. Small vessel disease. POS: [facility]
[2017-05-15] MEDS ORDERED: Amoxicillin/Potassium Clav 875 MG TAB PO SCH ×2 (12:15→21:00)
--- NOTE | 2017-05-15 12:24 | DIS ---
DATE OF ADMISSION: 05/14/2017 DATE OF DISCHARGE: 05/15/2017 PRIMARY CARE PHYSICIAN: Eran Max M.D. DISCHARGE DISPOSITION: Home. PRIMARY DISCHARGE DIAGNOSES: 1. Acute sinusitis. 2. Intractable headache due to problem #1. 3. Hypertensive urgency. SECONDARY DISCHARGE DIAGNOSES: Schizoaffective disorder, obesity with body mass index 32, noncomplia nce with medical treatment, hypertension, diabetes type 2, chronic kidney disease stage 2, chronic mi graine, benign enlargement of prostate, bipolar disorder. PRIMARY PROCEDURE/OPERATION: None. RADIOLOGICAL INVESTIGATION: CT brain on admission showed no acute process, paranasal sinus opacifica tion. MRI brain showed paranasal sinus disease, small vessel disease, no acute process. Chest x-ray , no acute cardiopulmonary process. CBC: WBC 7.6, hemoglobin 14.8, platelet 249, INR 1.0. Sodium 1 36, potassium 4.0, BUN 12, creatinine 0.95, calcium 9.0. LFT normal. Cardiac enzymes negative. LDL 53. DISCHARGE MEDICATIONS: Augmentin 875 mg p.o. b.i.d. for 7 days, aspirin 81 mg p.o. daily, Lipitor 10 mg p.o. daily, Flonase nasal spray daily, Advair two puff inhalation b.i.d., glipizide 5 mg p.o. nayla ly, hydralazine 25 mg p.o. t.i.d., metformin 500 mg p.o. b.i.d., metoprolol 50 mg p.o. daily, Zyprexa 7.5 mg p.o. at bedtime, and Effexor 37.5 mg p.o. daily. CONTRAINDICATIONS: None. CODE STATUS: FULL CODE. INPATIENT TALENT ACQUISITION COORDINATOR: Dr. Stevie Stauffer, neurologist was consulted while in hospital. TEST RESULTS PENDING ON DISCHARGE: None. ALLERGIES: SOMA, TRIPTONE, DILTIAZEM, LISINOPRIL, REGLAN. DISCHARGE PLAN: Post hospital, patient will follow up with primary care physician and Dr. Hubbard as instructed. HOSPITAL COURSE: A 66-year-old male with the above mentioned medical problem who was admitted by Dr. Kennedy Burt. Please see his H&P for further details. The patient presented to the emergency room w ith intractable headache. His blood pressure was also very high. This patient was afebrile. He was having nasal congestion. In the emergency room, this patient given a cocktail treatment for migrain e headache without any clinical improvement. This patient's initial CT brain suspected for paranasal sinus opacification. We did an MRI and MRI was showing only small vessel disease and it was showing paranasal sinus disease. This patient's headache is most likely related with acute sinusitis. We a re prescribing Augmentin upon discharge for 7 days. The patient is given to use Flonase nasal spray daily basis and also advised about steam inhalation. The patient is consulted by Neurology and they will see him later on today. Patient's pain was contr olled with pain medication. Because of patient's headache, blood pressure was fluctuating and that i s why we started hydralazine as well for better blood pressure control. We are increasing dose of me toprolol to 50 mg p.o. b.i.d. upon discharge and patient will have hydralazine as well on top of all of his previous medications. The patient is seen and examined at bedside today. All review of systems are reviewed with him and n egative. PHYSICAL EXAMINATION: VITAL SIGNS: Currently, temperature 98.0, pulse 99, respiratory rate 16, blood pressure 160/84, weig ht 210 pounds. GENERAL: The patient is currently alert, awake, no obvious acute distress. HEAD: Normocephalic, atraumatic. EYES: Pupils round and reactive to light. Extraocular muscles intact. ENT: Oropharynx within normal limits. Moist mucous membranes. No oral lesions. No pharyngeal eryt bipin, no exudate. NECK: Supple, no JVD, no thyromegaly, no carotid bruit. LUNGS: Clear to auscultation without any rhonchi. CARDIAC: S1 and S2 regular without any murmur. ABDOMEN: Soft and benign. NEUROLOGIC: Neurologically, nonfocal examination. The patient will be discharged today after Neurology evaluation.
[2017-05-15 16:20] VITALS: BP 160/83; TEMP 97.9
[2017-05-15] MEDS ORDERED: Mometasone/Formoterol 120 PUFF INHALER INH SCH (18:30)
[2017-05-15] MEDS ORDERED: OLANZapine 5 MG TAB PO SCH (21:00)
[2017-05-15] MEDS ORDERED: Atorvastatin Calcium 10 MG TAB PO SCH ×2 (21:00)
== END 2017-05-15 17:12 | disposition home or self-care (01) ==
LOC: ERS 13:58 → 2SE 21:25
PROVIDERS: ADMIT Internal Medicine; ATTEND Internal Medicine
DX: J01.90 Acute sinusitis, unspecified (principal); R51 Headache; F25.9 Schizoaffective disorder, unspecified; E66.9 Obesity, unspecified; I16.0 Hypertensive urgency; I13.10 Hypertensive heart and chronic kidney disease without heart failure, with stage 1 through stage 4 chronic kidney disease, or unspecified chronic kidney disease; E11.22 Type 2 diabetes mellitus with diabetic chronic kidney disease; N18.2 Chronic kidney disease, stage 2 (mild); N40.0 Benign prostatic hyperplasia without lower urinary tract symptoms; F31.9 Bipolar disorder, unspecified; G43.909 Migraine, unspecified, not intractable, without status migrainosus; Z68.32 Body mass index [BMI] 32.0-32.9, adult; Z79.82 Long term (current) use of aspirin; Z79.51 Long term (current) use of inhaled steroids; Z79.84 Long term (current) use of oral hypoglycemic drugs; Z79.899 Other long term (current) drug therapy; Z88.8 Allergy status to other drugs, medicaments and biological substances; Z98.890 Other specified postprocedural states
CPT/HCPCS: 70450; 70551; 71010; 80053; 80061; 82553; 82962; 84484; 85025; 85610; 93005; 96361; 96374; 96375; 96376; 97116; 97139; 99285; G0378; G8978; G8979; G8980; 36415; 36416; J0360; J1200; J1815; J1885; J2550; J2930; J7050; Q0162

== ENCOUNTER 2017-05-19 09:30 | Emergency (ER) | payer MEDICARE, OTHER ==
[2017-05-19] MEDS ORDERED: diphenhydrAMINE 50 MG/ML VIAL ONE (10:00)
[2017-05-19] MEDS ORDERED: Ketorolac Tromethamine 30 MG/ML VIAL ONE (10:00)
[2017-05-19 10:07] LABS: #Eosinphils 0.2 thou/uL (0.0-0.7); #Lymphocytes 1.2 thou/uL (1.20-3.40); #Monocytes 0.7 thou/uL (0.11-0.59); #Neutrophils 4.7 thou/uL (1.40-6.50); %Basophils 0.4 % (0.0-1.0); %Lymphocytes 17.8 % (21.0-51.0); %Monocytes 10.4 % (0.0-10.0); Hematocrit 45.2 % (42.0-52.0); Mean Platelet Volume 6.9 fL (7.4-10.4); Red Blood Cell (RBC) Count 4.95 mill/uL (4.70-6.10); White Blood Cell (WBC) Count 6.8 thou/uL (4.8-10.8)
[2017-05-19 10:30] LABS: ALT (SGPT) 28 U/L (8-55); AST (SGOT) 15 U/L (5-34); Alkaline Phosphatase 68 U/L (40-150); Anion Gap 11 mmol/L (10-20); BUN (Urea Nitrogen) 13 mg/dL (8.4-25.7); Bilirubin, Total 0.4 mg/dL (0.2-1.2); CK (CPK) 74 U/L (30-200); Calc. Creatinine Clearance 0 mL/min (70-130); Calcium 9.1 mg/dL (7.8-10.44); Carbon Dioxide 24 mmol/L (23-31); Chloride 101 mmol/L (98-107); Estimated GFR-MDRD 71; Globulin 3.3 g/dL (2.4-3.5); Protein, Total 7.3 g/dL (5.8-8.1)
[2017-05-19 10:35] LABS: Troponin I Less than 0.010 ng/mL (< 0.028)
--- NOTE | 2017-05-19 10:53 | RAD ---
FRONTAL VIEW CHEST: Date: 05/19/17 COMPARISON: 05/14/17. INDICATION: Chest pain. FINDINGS: Cardiac silhouette is accentuated. There is no consolidation, effusion, or pneumothorax. IMPRESSION: No focal consolidation. POS: [facility]
[2017-05-19] MEDS ORDERED: Water For Inject, Bacteriostat 30 ML ONE (11:29)
[2017-05-19] MEDS ORDERED: Magnesium Sulfate 2 GM/100 ML BAG ONE (11:29)
[2017-05-19] MEDS ORDERED: methylPREDNISolone Sod Succ/PF 125 MG/2 ML VIAL ONE (11:29)
[2017-05-19] MEDS ORDERED: VALPROATE SODIUM IVPB SCH (13:30)
[2017-05-19] MEDS ORDERED: SODIUM CHLORIDE IVPB SCH (13:30)
[2017-05-19] MEDS ORDERED: ADMIXTURE FEE IVPB SCH (13:30)
[2017-05-19] MEDS ORDERED: Lorazepam 2 MG/ML VIAL ONE (14:53)
[2017-05-19 15:10] LABS: Troponin I Less than 0.010 ng/mL (< 0.028)
== END 2017-05-19 16:52 | disposition home or self-care (01) ==
LOC: ERS 09:30
DX: F41.9 Anxiety disorder, unspecified (principal); R51 Headache; K21.9 Gastro-esophageal reflux disease without esophagitis; I10 Essential (primary) hypertension; E11.9 Type 2 diabetes mellitus without complications; J45.909 Unspecified asthma, uncomplicated; F25.9 Schizoaffective disorder, unspecified; Z86.73 Personal history of transient ischemic attack (TIA), and cerebral infarction without residual deficits; Z79.84 Long term (current) use of oral hypoglycemic drugs; Z79.82 Long term (current) use of aspirin; Z79.899 Other long term (current) drug therapy
CPT/HCPCS: 36415; 71010; 80053; 82553; 84484; 85025; 93005; 96361; 96365; 96367; 96375; J1200; J1885; J2060; J2930; J3475; J7050

== ENCOUNTER 2017-05-22 10:53 | Emergency (ER) | payer MEDICARE, OTHER ==
[2017-05-22] MEDS ORDERED: Furosemide 20 MG/2 ML VIAL ONE (11:40)
[2017-05-22] MEDS ORDERED: cloNIDine 0.1 MG TAB ONE (11:40)
--- NOTE | 2017-05-22 11:44 | RAD ---
EXAM: ONE VIEW CHEST: History Chest pain with palpitation. COMPARISON: 05/19/17. FINDINGS: Normal cardiac silhouette. The pulmonary vessels and pulmonary hilum are normal. No consolidation o r mass. No osseous abnormalities or pneumothorax. IMPRESSION: No acute cardiopulmonary process. POS: [facility]
[2017-05-22 14:04] LABS: Hematocrit 42.3 % (42.0-52.0); Mean Platelet Volume 7.2 fL (7.4-10.4); Red Blood Cell (RBC) Count 4.57 mill/uL (4.70-6.10); White Blood Cell (WBC) Count 6.2 thou/uL (4.8-10.8)
[2017-05-22 14:21] LABS: ALT (SGPT) 30 U/L (8-55); AST (SGOT) 15 U/L (5-34); Alkaline Phosphatase 59 U/L (40-150); Anion Gap 13 mmol/L (10-20); BUN (Urea Nitrogen) 14 mg/dL (8.4-25.7); Bilirubin, Total 0.5 mg/dL (0.2-1.2); CK (CPK) 40 U/L (30-200); Calc. Creatinine Clearance 0 mL/min (70-130); Calcium 8.8 mg/dL (7.8-10.44); Carbon Dioxide 25 mmol/L (23-31); Chloride 99 mmol/L (98-107); Estimated GFR-MDRD 71; Lipase 37 U/L (8-78); Protein, Total 6.8 g/dL (5.8-8.1)
[2017-05-22 14:25] LABS: Troponin I Less than 0.010 ng/mL (< 0.028)
[2017-05-22 14:26] LABS: Neutrophil 76 % (42-75); Reactive Lymphocytes 2 % (0-10)
--- NOTE | 2017-06-23 14:07 | EKG ---
Test Reason : Blood Pressure : / mmHG Vent. Rate : 065 BPM Atrial Rate : 065 BPM P-R Int : 158 ms QRS Dur : 104 ms QT Int : 386 ms P-R-T Axes : 063 -32 014 degrees QTc Int : 401 ms Normal sinus rhythm Left axis deviation Voltage criteria for left ventricular hypertrophy Abnormal ECG Confirmed by SHUBHAM RUST, ZAKIA ([id number]), makeup editor KATRIN EDGE ([id number]) on 06/23/2017 2:07:17 PM Referred By: Confirmed By:ZAKIA JALLOH MD
== END 2017-05-22 15:50 | disposition home or self-care (01) ==
LOC: ERS 10:53
DX: B34.9 Viral infection, unspecified (principal); K21.9 Gastro-esophageal reflux disease without esophagitis; I10 Essential (primary) hypertension; G43.909 Migraine, unspecified, not intractable, without status migrainosus; E11.9 Type 2 diabetes mellitus without complications; J45.909 Unspecified asthma, uncomplicated; F41.9 Anxiety disorder, unspecified; F20.9 Schizophrenia, unspecified; Z79.82 Long term (current) use of aspirin; Z79.52 Long term (current) use of systemic steroids; Z79.899 Other long term (current) drug therapy; Z86.73 Personal history of transient ischemic attack (TIA), and cerebral infarction without residual deficits
CPT/HCPCS: 71010; 80053; 82553; 83690; 84484; 85025; 93005; 96374; J1940

== ENCOUNTER 2017-05-23 17:58 | Emergency (ER) | payer MEDICARE, OTHER ==
[2017-05-23 22:40] LABS: #Basophils 0.1 thou/uL (0.0-0.2); #Eosinphils 0.2 thou/uL (0.0-0.7); #Lymphocytes 1.6 thou/uL (1.20-3.40); #Monocytes 0.9 thou/uL (0.11-0.59); %Basophils 0.7 % (0.0-1.0); %Eosinophils 2.7 % (0.0-10.0); %Lymphocytes 20.4 % (21.0-51.0); %Monocytes 12.1 % (0.0-10.0); Hematocrit 44.6 % (42.0-52.0); Mean Platelet Volume 6.5 fL (7.4-10.4); White Blood Cell (WBC) Count 7.8 thou/uL (4.8-10.8)
[2017-05-23 23:03] LABS: ALT (SGPT) 30 U/L (8-55); AST (SGOT) 15 U/L (5-34); Alkaline Phosphatase 71 U/L (40-150); Anion Gap 13 mmol/L (10-20); BUN (Urea Nitrogen) 15 mg/dL (8.4-25.7); Bilirubin, Total 0.3 mg/dL (0.2-1.2); CK (CPK) 40 U/L (30-200); Calc. Creatinine Clearance 0 mL/min (70-130); Calcium 9.9 mg/dL (7.8-10.44); Carbon Dioxide 32 mmol/L (23-31); Chloride 99 mmol/L (98-107); Estimated GFR-MDRD 64; Globulin 3.3 g/dL (2.4-3.5); Protein, Total 7.5 g/dL (5.8-8.1)
[2017-05-23 23:07] LABS: Troponin I Less than 0.010 ng/mL (< 0.028)
[2017-05-23 23:40] LABS: Bilirubin Negative (Negative); Blood, Urine Negative (Negative); Glucose, Urine (Dipstick) 250 mg/dL (Negative); Ketone, Urine Negative (Negative); Nitrite Negative (Negative); Protein, Urine (Dipstick) Negative (Neg-Trace); Urobilinogen 0.2 mg/dL (0.2-1.0)
== END 2017-05-23 23:45 | disposition home or self-care (01) ==
LOC: ERS 17:58
DX: R07.9 Chest pain, unspecified (principal); K21.9 Gastro-esophageal reflux disease without esophagitis; N40.0 Benign prostatic hyperplasia without lower urinary tract symptoms; I10 Essential (primary) hypertension; G43.909 Migraine, unspecified, not intractable, without status migrainosus; E11.9 Type 2 diabetes mellitus without complications; J45.909 Unspecified asthma, uncomplicated; Z86.73 Personal history of transient ischemic attack (TIA), and cerebral infarction without residual deficits; F41.9 Anxiety disorder, unspecified; F25.9 Schizoaffective disorder, unspecified
CPT/HCPCS: 36415; 80053; 81003; 82553; 83880; 84484; 85025; 93005

== ENCOUNTER 2017-05-24 14:30 | Emergency (ER) | payer MEDICARE, OTHER ==
--- NOTE | 2017-05-24 15:48 | RAD ---
CHEST ONE VIEW: 05/24/17 at 4:16 p.m. HISTORY: Cough. FINDINGS: Comparison is made with the exam of 05/22/17. The heart size is normal. The aorta is tortuous. The lungs are expanded without focal areas of consol idation, pneumothorax, marimar pulmonary edema or pleural effusions. IMPRESSION: No radiographic evidence of acute cardiopulmonary process. POS: [facility]
[2017-05-24] MEDS ORDERED: diphenhydrAMINE 50 MG/ML VIAL ONE (17:42)
[2017-05-24] MEDS ORDERED: Ketorolac Tromethamine 30 MG/ML VIAL ONE (17:42)
[2017-05-24 18:16] LABS: Hematocrit 42.1 % (42.0-52.0); Mean Platelet Volume 6.4 fL (7.4-10.4); Red Blood Cell (RBC) Count 4.52 mill/uL (4.70-6.10); White Blood Cell (WBC) Count 7.8 thou/uL (4.8-10.8)
[2017-05-24 18:38] LABS: ALT (SGPT) 26 U/L (8-55); AST (SGOT) 15 U/L (5-34); Alkaline Phosphatase 64 U/L (40-150); Anion Gap 7 mmol/L (10-20); BUN (Urea Nitrogen) 14 mg/dL (8.4-25.7); Bilirubin, Total 0.3 mg/dL (0.2-1.2); CK (CPK) 34 U/L (30-200); Calc. Creatinine Clearance 0 mL/min (70-130); Calcium 9.4 mg/dL (7.8-10.44); Carbon Dioxide 32 mmol/L (23-31); Chloride 104 mmol/L (98-107); Estimated GFR-MDRD 77; Globulin 3.1 g/dL (2.4-3.5); Protein, Total 6.9 g/dL (5.8-8.1)
[2017-05-24 18:40] LABS: Troponin I Less than 0.010 ng/mL (< 0.028)
[2017-05-24 18:44] LABS: Band 1 % (5-11); Neutrophil 63 % (42-75); Reactive Lymphocytes 4 % (0-10)
== END 2017-05-24 19:40 | disposition home or self-care (01) ==
LOC: ERS 14:30
DX: F41.9 Anxiety disorder, unspecified (principal); R51 Headache; K21.9 Gastro-esophageal reflux disease without esophagitis; N40.0 Benign prostatic hyperplasia without lower urinary tract symptoms; I10 Essential (primary) hypertension; E11.9 Type 2 diabetes mellitus without complications; J45.909 Unspecified asthma, uncomplicated; G43.909 Migraine, unspecified, not intractable, without status migrainosus; Z86.73 Personal history of transient ischemic attack (TIA), and cerebral infarction without residual deficits; F25.9 Schizoaffective disorder, unspecified
CPT/HCPCS: 36415; 71010; 80053; 82550; 82553; 84484; 85025; 93005; 96361; 96374; 96375; J1200; J1885

== ENCOUNTER 2017-05-29 11:05 | Emergency (ER) | payer MEDICARE, MEDICAID ==
--- NOTE | 2017-05-29 13:48 | RAD ---
AP VIEW CHEST: Date: 05/29/17 HISTORY: Chest pain. FINDINGS: AP view chest obtained on 05/29/17. COMPARISON: Previous exam from 05/24/17. FINDINGS: AP view of chest demonstrates the lungs to be well aerated. No evidence of active intrathoracic disea se is seen. No evidence of effusions, pneumonia, or pneumothorax seen. IMPRESSION: Unremarkable AP view chest. POS: [facility]
== END 2017-05-29 13:26 | disposition home or self-care (01) ==
LOC: ERS 11:05
DX: R11.0 Nausea (principal); R07.9 Chest pain, unspecified; K21.9 Gastro-esophageal reflux disease without esophagitis; I10 Essential (primary) hypertension; G43.909 Migraine, unspecified, not intractable, without status migrainosus; E11.9 Type 2 diabetes mellitus without complications; J45.909 Unspecified asthma, uncomplicated; F41.9 Anxiety disorder, unspecified; F32.9 Major depressive disorder, single episode, unspecified; F25.9 Schizoaffective disorder, unspecified; Z86.73 Personal history of transient ischemic attack (TIA), and cerebral infarction without residual deficits
CPT/HCPCS: 71010; 93005

== ENCOUNTER 2017-05-30 10:58 | Emergency (ER) | payer MEDICARE, MEDICAID ==
--- NOTE | 2017-05-30 11:38 | RAD ---
PORTABLE CHEST 1 VIEW: Date: 05/30/17 Time: 1131 hours HISTORY: Palpitations. FINDINGS: Comparison made with exam of previous day. The heart size is normal. The aorta is tortuous. The lungs are expanded without focal areas of consol idation, pneumothorax, marimar pulmonary edema, or pleural effusions. IMPRESSION: No radiographic evidence of acute cardiopulmonary process. POS: [facility]
[2017-05-30 11:50] LABS: Mean Platelet Volume 7.4 fL (7.4-10.4); White Blood Cell (WBC) Count 5.9 thou/uL (4.8-10.8)
[2017-05-30 12:08] LABS: Band 3 % (5-11); Neutrophil 64 % (42-75)
[2017-05-30 12:14] LABS: Troponin I 0.015 ng/mL (< 0.028)
[2017-05-30 12:16] LABS: ALT (SGPT) 29 U/L (8-55); AST (SGOT) 31 U/L (5-34); Alkaline Phosphatase 65 U/L (40-150); Anion Gap 15 mmol/L (10-20); BUN (Urea Nitrogen) 12 mg/dL (8.4-25.7); Bilirubin, Total 0.4 mg/dL (0.2-1.2); CK (CPK) 59 U/L (30-200); Calc. Creatinine Clearance 0 mL/min (70-130); Calcium 8.7 mg/dL (7.8-10.44); Carbon Dioxide 23 mmol/L (23-31); Chloride 98 mmol/L (98-107); Estimated GFR-MDRD 66; Globulin 3.4 g/dL (2.4-3.5); Protein, Total 7.2 g/dL (5.8-8.1)
== END 2017-05-30 12:54 | disposition home or self-care (01) ==
LOC: ERS 10:58
DX: F41.9 Anxiety disorder, unspecified (principal); K21.9 Gastro-esophageal reflux disease without esophagitis; I10 Essential (primary) hypertension; G43.909 Migraine, unspecified, not intractable, without status migrainosus; N40.0 Benign prostatic hyperplasia without lower urinary tract symptoms; J45.909 Unspecified asthma, uncomplicated; E11.9 Type 2 diabetes mellitus without complications; F32.9 Major depressive disorder, single episode, unspecified; F25.9 Schizoaffective disorder, unspecified; Z86.73 Personal history of transient ischemic attack (TIA), and cerebral infarction without residual deficits; Z79.899 Other long term (current) drug therapy; Z79.84 Long term (current) use of oral hypoglycemic drugs; Z79.82 Long term (current) use of aspirin
CPT/HCPCS: 71010; 80053; 82550; 82553; 84484; 85025; 93005

== ENCOUNTER 2017-06-01 10:01 | Emergency (ER) | payer MEDICARE, MEDICAID ==
--- NOTE | 2017-06-01 11:08 | RAD ---
AP CHEST: Indication: Headache with high blood sugar and cough. IMPRESSION: No acute cardiopulmonary abnormality. The examination does not appear appreciably changed from the co mparison dated 05-30-17. POS: [facility]
== END 2017-06-01 11:05 | disposition home or self-care (01) ==
LOC: ERS 10:01
DX: R05 Cough (principal); I10 Essential (primary) hypertension; K21.9 Gastro-esophageal reflux disease without esophagitis; G43.909 Migraine, unspecified, not intractable, without status migrainosus; E11.9 Type 2 diabetes mellitus without complications; J45.909 Unspecified asthma, uncomplicated; F41.9 Anxiety disorder, unspecified; F32.9 Major depressive disorder, single episode, unspecified; F25.9 Schizoaffective disorder, unspecified; Z79.899 Other long term (current) drug therapy; Z86.73 Personal history of transient ischemic attack (TIA), and cerebral infarction without residual deficits; Z79.82 Long term (current) use of aspirin; Z79.84 Long term (current) use of oral hypoglycemic drugs
CPT/HCPCS: 36416; 71010

== ENCOUNTER 2017-06-02 13:56 | Emergency (ER) | payer MEDICARE, OTHER ==
[2017-06-02] MEDS ORDERED: Acetaminophen 325 MG TAB ONE (14:58)
[2017-06-02 15:15] LABS: #Eosinphils 0.2 thou/uL (0.0-0.7); #Lymphocytes 1.3 thou/uL (1.20-3.40); #Monocytes 0.9 thou/uL (0.11-0.59); #Neutrophils 5.8 thou/uL (1.40-6.50); %Basophils 0.4 % (0.0-1.0); %Eosinophils 1.9 % (0.0-10.0); %Lymphocytes 15.9 % (21.0-51.0); %Monocytes 10.5 % (0.0-10.0); %Neutrophils 71.3 % (42.0-75.0); Hemoglobin 13.8 g/dL (14.0-18.0); Mean Corpuscular HGB CONC 33.6 g/dL (32.0-36.0); Mean Corpuscular Hemoglobin 30.8 pg (27.0-31.0); Mean Corpuscular Volume 91.6 fl (80.0-94.0); Mean Platelet Volume 6.8 fL (7.4-10.4); Platelet Count 234 thou/uL (130-400); RBC Distribution Width 12.3 % (11.5-14.5); Red Blood Cell (RBC) Count 4.49 mill/uL (4.70-6.10); White Blood Cell (WBC) Count 8.2 thou/uL (4.8-10.8)
--- NOTE | 2017-06-02 15:17 | RAD ---
PORTABLE CHEST ONE VIEW: 06/02/2017 at 2:51 p.m. HISTORY: Chest pain. FINDINGS: Comparison is made with the exam of previous day. The heart size is borderline. The lungs are expanded without focal areas of consolidation, pneumotho rax, marimar pleural edema, or pleural effusions. There are degenerative changes in the spine. IMPRESSION: No radiographic evidence of acute cardiopulmonary process. POS: [facility]
[2017-06-02 15:36] LABS: ALT (SGPT) 26 U/L (8-55); AST (SGOT) 18 U/L (5-34); Alkaline Phosphatase 66 U/L (40-150); Anion Gap 13 mmol/L (10-20); BUN (Urea Nitrogen) 12 mg/dL (8.4-25.7); Bilirubin, Total 0.3 mg/dL (0.2-1.2); Calc. Creatinine Clearance 0 mL/min (70-130); Calcium 9.2 mg/dL (7.8-10.44); Carbon Dioxide 25 mmol/L (23-31); Chloride 100 mmol/L (98-107); Estimated GFR-MDRD 79; Globulin 3.2 g/dL (2.4-3.5); Glucose 141 mg/dL (80-115); Potassium 3.9 mmol/L (3.5-5.1); Protein, Total 7.2 g/dL (5.8-8.1); Sodium 134 mmol/L (136-145)
[2017-06-02 15:40] LABS: CKMB 1.2 ng/mL (0-6.6); Troponin I 0.011 ng/mL (< 0.028)
[2017-06-02] MEDS ORDERED: Ondansetron ODT 4 MG TAB ONE (16:18)
[2017-06-02] MEDS ORDERED: Ketorolac Tromethamine 30 MG/ML VIAL ONE (16:19)
== END 2017-06-02 17:05 | disposition home or self-care (01) ==
LOC: ERS 13:56
DX: R07.89 Other chest pain (principal); R51 Headache; K21.9 Gastro-esophageal reflux disease without esophagitis; I10 Essential (primary) hypertension; E11.9 Type 2 diabetes mellitus without complications; J45.909 Unspecified asthma, uncomplicated; F41.9 Anxiety disorder, unspecified; F32.9 Major depressive disorder, single episode, unspecified; F25.9 Schizoaffective disorder, unspecified; Z86.73 Personal history of transient ischemic attack (TIA), and cerebral infarction without residual deficits; Z79.84 Long term (current) use of oral hypoglycemic drugs; Z79.82 Long term (current) use of aspirin; Z79.899 Other long term (current) drug therapy
CPT/HCPCS: 36415; 71010; 80053; 82553; 84484; 85025; 93005; J1885; Q0162

== ENCOUNTER 2017-06-04 11:32 | Emergency (ER) | payer MEDICARE, MEDICAID | END 2017-06-04 14:21 | disposition home or self-care (01) | LOC: ERS 11:32 | DX: F41.9 Anxiety disorder, unspecified (principal); R51 Headache; K21.9 Gastro-esophageal reflux disease without esophagitis; N40.0 Benign prostatic hyperplasia without lower urinary tract symptoms; I10 Essential (primary) hypertension; E11.9 Type 2 diabetes mellitus without complications; J45.909 Unspecified asthma, uncomplicated; G43.909 Migraine, unspecified, not intractable, without status migrainosus; F32.9 Major depressive disorder, single episode, unspecified; F25.9 Schizoaffective disorder, unspecified; Z86.73 Personal history of transient ischemic attack (TIA), and cerebral infarction without residual deficits; Z79.899 Other long term (current) drug therapy; Z79.82 Long term (current) use of aspirin; Z79.84 Long term (current) use of oral hypoglycemic drugs | CPT/HCPCS: 93005 ==

== ENCOUNTER 2017-06-17 14:40 | Emergency (ER) | payer MEDICARE, MEDICAID ==
[2017-06-17] MEDS ORDERED: Nitroglycerin 2% Ointment 1 INCH/1 GM Packet ONE (15:20)
[2017-06-17 15:28] LABS: Mean Corpuscular HGB CONC 33.4 g/dL (32.0-36.0); Mean Corpuscular Hemoglobin 30.2 pg (27.0-31.0); Mean Corpuscular Volume 90.4 fl (80.0-94.0); Mean Platelet Volume 6.3 fL (7.4-10.4); Platelet Count 270 thou/uL (130-400); RBC Distribution Width 12.1 % (11.5-14.5); Red Blood Cell (RBC) Count 4.62 mill/uL (4.70-6.10)
[2017-06-17 15:34] LABS: ALT (SGPT) 25 U/L (8-55); AST (SGOT) 19 U/L (5-34); Acetaminophen Less than 6.0 mcg/mL (10.0-30.0); Albumin 4.1 g/dL (3.4-4.8); Alcohol Less than 10 mg/dL (Less than 10); Alkaline Phosphatase 69 U/L (40-150); Anion Gap 14 mmol/L (10-20); BUN (Urea Nitrogen) 9 mg/dL (8.4-25.7); Bilirubin, Total 0.3 mg/dL (0.2-1.2); CK (CPK) 107 U/L (30-200); Calc. Creatinine Clearance 0 mL/min (70-130); Calcium 9.5 mg/dL (7.8-10.44); Carbon Dioxide 27 mmol/L (23-31); Chloride 101 mmol/L (98-107); Estimated GFR-MDRD 75; Globulin 3.2 g/dL (2.4-3.5); Glucose 141 mg/dL (80-115); Lipase 30 U/L (8-78); Potassium 3.8 mmol/L (3.5-5.1); Protein, Total 7.3 g/dL (5.8-8.1); Salicylate Less than 8.0 mg/dL (15.0-30.0); Sodium 138 mmol/L (136-145)
[2017-06-17 15:44] LABS: CKMB 1.5 ng/mL (0-6.6); Troponin I Less than 0.010 ng/mL (< 0.028)
[2017-06-17 15:48] LABS: Amphetamine Not Detected (NotDetected); Barbiturates Screen Not Detected (NotDetected); Benzodiazepine Screen Not Detected (NotDetected); Cocaine Metabolite Screen Not Detected (NotDetected); Medtox Control Line Valid? VALID (VALID); Medtox Reader # READER 1; Methadone Not Detected (NotDetected); Methamphetamine Not Detected (NotDetected); Opiate Screen Not Detected (NotDetected); Oxycodone Screen Not Detected (NotDetected); Phencyclidine (PCP) Not Detected (NotDetected); THC/Cannabinoid Screen Not Detected (NotDetected); Tricyclic Screen Not Detected (NotDetected)
[2017-06-17 15:51] LABS: Band 2 % (5-11); Eosinophils 7 % (0-10); Lymphocytes 16 % (21-51); MDiff Complete? YES; Monocytes 14 % (0-10); Neutrophil 52 % (42-75); PLT Morphology Comment Appears Adequate; RBC Morphology Normal; Reactive Lymphocytes 8 % (0-10)
--- NOTE | 2017-06-17 16:01 | RAD ---
CHEST ONE VIEW 06/17/17 HISTORY: Chest pain. COMPARISON: Chest one view 06/02/17. FINDINGS: Atelectasis left lung base. No pneumothorax. The cardiac silhouette and mediastinal contours are with in normal limits. IMPRESSION: No acute intrathoracic abnormality. No significant change. POS: [facility]
== END 2017-06-17 16:41 | disposition home or self-care (01) ==
LOC: ERS 14:40
DX: R07.89 Other chest pain (principal); K21.9 Gastro-esophageal reflux disease without esophagitis; I10 Essential (primary) hypertension; E11.9 Type 2 diabetes mellitus without complications; J45.909 Unspecified asthma, uncomplicated; F41.9 Anxiety disorder, unspecified; F32.9 Major depressive disorder, single episode, unspecified; F25.9 Schizoaffective disorder, unspecified; Z86.73 Personal history of transient ischemic attack (TIA), and cerebral infarction without residual deficits; Z79.82 Long term (current) use of aspirin; Z79.84 Long term (current) use of oral hypoglycemic drugs; Z79.899 Other long term (current) drug therapy; Z79.891 Long term (current) use of opiate analgesic
CPT/HCPCS: 71045; 80053; 80306; 80307; 82550; 82553; 83690; 84443; 84484; 85025; 93005

== ENCOUNTER 2017-06-25 10:48 | Emergency (ER) | payer MEDICARE, MEDICAID ==
[2017-06-25 11:29] LABS: #Eosinphils 0.1 thou/uL (0.0-0.7); #Monocytes 0.5 thou/uL (0.11-0.59); #Neutrophils 2.7 thou/uL (1.40-6.50); %Basophils 0.7 % (0.0-1.0); %Lymphocytes 23.1 % (21.0-51.0); %Neutrophils 62.3 % (42.0-75.0); Hemoglobin 13.7 g/dL (14.0-18.0); Mean Corpuscular HGB CONC 32.6 g/dL (32.0-36.0); Mean Corpuscular Hemoglobin 29.3 pg (27.0-31.0); Mean Platelet Volume 6.8 fL (7.4-10.4); Platelet Count 249 thou/uL (130-400); Red Blood Cell (RBC) Count 4.67 mill/uL (4.70-6.10); White Blood Cell (WBC) Count 4.3 thou/uL (4.8-10.8)
[2017-06-25 11:51] LABS: ALT (SGPT) 25 U/L (8-55); AST (SGOT) 16 U/L (5-34); Albumin 3.8 g/dL (3.4-4.8); Alkaline Phosphatase 66 U/L (40-150); Anion Gap 15 mmol/L (10-20); BUN (Urea Nitrogen) 10 mg/dL (8.4-25.7); Bilirubin, Total 0.4 mg/dL (0.2-1.2); CK (CPK) 64 U/L (30-200); Calc. Creatinine Clearance 0 mL/min (70-130); Calcium 8.9 mg/dL (7.8-10.44); Carbon Dioxide 22 mmol/L (23-31); Chloride 100 mmol/L (98-107); Estimated GFR-MDRD 70; Globulin 3.3 g/dL (2.4-3.5); Glucose 342 mg/dL (80-115); Lipase 30 U/L (8-78); Protein, Total 7.1 g/dL (5.8-8.1); Sodium 133 mmol/L (136-145)
[2017-06-25 11:55] LABS: CKMB 1.5 ng/mL (0-6.6); Troponin I 0.012 ng/mL (< 0.028)
--- NOTE | 2017-06-25 11:58 | RAD ---
SINGLE VIEW OF THE CHEST: COMPARISON: 06/17/17. HISTORY: Chest pain and anxiety. FINDINGS: Single view of the chest shows a normal sized cardiomediastinal silhouette. There is no evidence of c onsolidation, mass, or pleural effusion. The bones are unremarkable. IMPRESSION: No evidence of acute cardiopulmonary disease. POS: [facility]
[2017-06-25 14:32] LABS: Troponin I 0.027 ng/mL (< 0.028)
--- NOTE | 2017-07-01 18:41 | EKG ---
Test Reason : Blood Pressure : / mmHG Vent. Rate : 099 BPM Atrial Rate : 099 BPM P-R Int : 164 ms QRS Dur : 094 ms QT Int : 352 ms P-R-T Axes : 052 -41 037 degrees QTc Int : 451 ms Normal sinus rhythm Left axis deviation Voltage criteria for left ventricular hypertrophy Possible Lateral infarct , age undetermined Cannot rule out Inferior infarct , age undetermined Abnormal ECG Confirmed by MAICOL LI MD ([id number]), newspaper editor managing KATRIN EDGE ([id number]) on 07/01/2017 6:40:32 PM Referred By: Confirmed By:MAICOL LI MD
--- NOTE | 2017-07-01 19:15 | EKG ---
Test Reason : Blood Pressure : / mmHG Vent. Rate : 114 BPM Atrial Rate : 114 BPM P-R Int : 156 ms QRS Dur : 094 ms QT Int : 344 ms P-R-T Axes : 012 110 020 degrees QTc Int : 474 ms Suspect Arm Lead Reversal Sinus tachycardia Left posterior fascicular block Right axis Abnormal ECG Confirmed by JEN RUST, MAICOL ([id number]), news editor KATRIN EDGE ([id number]) on 07/01/2017 7:15:29 PM Referred By: Confirmed By:MAICOL LI MD
== END 2017-06-25 14:49 | disposition home or self-care (01) ==
LOC: ERS 10:48
DX: F41.9 Anxiety disorder, unspecified (principal); R07.89 Other chest pain; K21.9 Gastro-esophageal reflux disease without esophagitis; N40.0 Benign prostatic hyperplasia without lower urinary tract symptoms; I10 Essential (primary) hypertension; G43.909 Migraine, unspecified, not intractable, without status migrainosus; E11.9 Type 2 diabetes mellitus without complications; J45.909 Unspecified asthma, uncomplicated; Z86.73 Personal history of transient ischemic attack (TIA), and cerebral infarction without residual deficits; F32.9 Major depressive disorder, single episode, unspecified; F25.9 Schizoaffective disorder, unspecified; Z79.899 Other long term (current) drug therapy; Z79.84 Long term (current) use of oral hypoglycemic drugs; Z79.82 Long term (current) use of aspirin
CPT/HCPCS: 36415; 71045; 80053; 82550; 82553; 83690; 84484; 85025; 93005; 94760; 96360

== ENCOUNTER 2017-06-27 18:43 | Emergency (ER) | payer MEDICARE, OTHER | END 2017-06-27 20:58 | disposition left against medical advice (07) | LOC: ERS 18:43 | DX: Z53.21 Procedure and treatment not carried out due to patient leaving prior to being seen by health care provider (principal) | CPT/HCPCS: 93005 ==

== ENCOUNTER 2017-07-15 10:46 | Inpatient (IN) | payer MEDICARE, MEDICAID ==
--- NOTE | 2017-07-15 11:42 | RAD ---
PORTABLE AP CHEST: Date: 07/15/17 HISTORY: Dyspnea and tachycardia. COMPARISON: 06/17/17. FINDINGS: Cardiac silhouette and pulmonary vasculature are within normal limits. The lungs are clear. Degenerat kemar changes are seen in the spine. There has been no interval change from the prior exam. IMPRESSION: No acute cardiopulmonary process. POS: [facility]
[2017-07-15 11:50] LABS: #Eosinphils 0.1 thou/uL (0.0-0.7); #Lymphocytes 1.2 thou/uL (1.20-3.40); #Monocytes 0.9 thou/uL (0.11-0.59); #Neutrophils 5.2 thou/uL (1.40-6.50); %Basophils 0.6 % (0.0-1.0); %Eosinophils 0.8 % (0.0-10.0); %Lymphocytes 16.4 % (21.0-51.0); %Monocytes 11.9 % (0.0-10.0); %Neutrophils 70.4 % (42.0-75.0); Hemoglobin 14.3 g/dL (14.0-18.0); Mean Corpuscular HGB CONC 32.6 g/dL (32.0-36.0); Mean Corpuscular Hemoglobin 29.7 pg (27.0-31.0); Mean Corpuscular Volume 91.3 fl (80.0-94.0); Mean Platelet Volume 6.7 fL (7.4-10.4); Platelet Count 252 thou/uL (130-400); RBC Distribution Width 12.4 % (11.5-14.5); White Blood Cell (WBC) Count 7.4 thou/uL (4.8-10.8)
[2017-07-15 12:13] LABS: ALT (SGPT) 19 U/L (8-55); AST (SGOT) 14 U/L (5-34); Albumin 4.2 g/dL (3.4-4.8); Alkaline Phosphatase 78 U/L (40-150); Anion Gap 15 mmol/L (10-20); BUN (Urea Nitrogen) 9 mg/dL (8.4-25.7); Bilirubin, Total 0.3 mg/dL (0.2-1.2); CK (CPK) 79 U/L (30-200); Calc. Creatinine Clearance 0 mL/min (70-130); Calcium 9.6 mg/dL (7.8-10.44); Carbon Dioxide 26 mmol/L (23-31); Chloride 100 mmol/L (98-107); Estimated GFR-MDRD 69; Globulin 3.9 g/dL (2.4-3.5); Glucose 278 mg/dL (80-115); Potassium 3.9 mmol/L (3.5-5.1); Protein, Total 8.1 g/dL (5.8-8.1); Sodium 137 mmol/L (136-145)
[2017-07-15 12:16] LABS: CKMB 1.8 ng/mL (0-6.6); Troponin I 0.079 ng/mL (< 0.028)
[2017-07-15 15:44] LABS: Troponin I 0.146 ng/mL (< 0.028)
[2017-07-15] MEDS ORDERED: Nitroglycerin 2% Ointment 1 INCH/1 GM Packet ONE (16:16)
[2017-07-15] MEDS ORDERED: Labetalol HCl 100 MG/20 ML VIAL ONE (16:16)
[2017-07-15] MEDS ORDERED: Enoxaparin Sodium 100 MG/ML SYRINGE ONE (16:16)
[2017-07-15] MEDS ORDERED: Dextrose 50% Abboject 50 ML SYRINGE SLOW IVP PRN (16:43)
[2017-07-15] MEDS ORDERED: Dextrose 5% in Water 1,000 ML IV PRN (16:43)
[2017-07-15] MEDS ORDERED: HumaLOG 300 UNITS/3 ML VIAL SC PRN (16:43)
--- NOTE | 2017-07-15 18:17 | HP ---
DATE OF ADMISSION: 07/15/2017 CHIEF COMPLAINT: Chest pain. HISTORY OF PRESENT ILLNESS: This is a 66-year-old white male with a known history of type 2 diabetes mellitus, hypertension, history of TIA in the past. The patient was in his usual state of health un til this morning around 5 o'clock. He woke up with a sudden onset of chest pain in the left precordi um, radiating to the left arm, not associated with nausea, not associated with dizziness. The pain l asted for more than 1 hour and has been intermittent since then. The pain was graded as 7/10 intensi ty, was squeezing type of pain, but he also has a history of GERD, so the patient had waited for some time before he came to the ER. When the patient presented to the ER, he had an EKG which was negati ve for any ST segment changes, but had initial mild troponin elevation which progressively went up to 10 points. The patient denied having any further chest pains after this. He was given nitro and al so aspirin in the ER. The patient is pretty comfortable at this time. He noted that he is a not a k nown smoker, but has a strong family history of coronary artery disease. His father had a first WI a t the age of 40 and his brother also has a history of WI, but his dad at age of 60. The patient is a known diabetic and seems like poorly controlled. He is on metformin and glipizide for that. PAST MEDICAL HISTORY: 1. Type 2 diabetes mellitus. 2. History of hypertension. 3. Hyperlipidemia. 4. History of transient ischemic attack. PAST SURGICAL HISTORY: The patient had a prostate biopsy in the past, was noncancerous at that time. SOCIAL HISTORY: The patient is a not a known smoker. He drinks alcohol very occasionally. There is no history of illicit drug use. FAMILY HISTORY: The patient has significant family history of coronary artery disease. His father h ad an WI at age of 40 and also his brother also had WI. HOME MEDICATIONS: 1. Aspirin 81 mg daily. 2. Atorvastatin 10 mg p.o. daily. 3. Fluticasone 16 g 1 spray each nostril daily. 4. Glipizide 5 mg p.o. daily. 5. Hydralazine 25 mg p.o. t.i.d. 6. Metformin 500 mg p.o. b.i.d. 7. Metoprolol 50 mg p.o. q.12 h. 8. Olanzapine 7.5 mg p.o. at bedtime. 9. Venlafaxine 37.5 mg p.o. daily. ALLERGIES: The patient has allergic to SUMATRIPTAN, DILTIAZEM, LISINOPRIL, METOCLOPRAMIDE. REVIEW OF SYSTEMS: All 12 systems are reviewed with the patient thoroughly and found to be negative at this time except the ones described in HPI. Constitutional: Weight loss or gain, sense of well-being, ability to conduct usual activities, exerc ise tolerance. Skin/Breast: Rash, itching, changes in hair growth or loss, nail changes, breast lumps, tenderness, swelling, nipple discharge. Eyes: Vision, double vision, tearing, blind spots, pain. ENT/Mouth: Headaches (location, time of onset, duration, precipitating factors), vertigo, lightheadedness, injury. Vision, double vision, tearing, blind spots, pain, nose b leeding, colds, obstruction, discharge, dental difficulties, gingival bleeding, dentures, neck stiffn ess, pain, tenderness, masses in thyroid or other areas Cardiovascular: Precordial pain, substernal distress, palpitations, syncope, dyspnea on exertion, or thopnea, nocturnal paroxysmal dyspnea, edema, cyanosis, hypertension, heart murmurs, varicosities, ph lebitis, claudication. Respiratory: Pain, shortness of breath, wheezing, stridor, cough, hemoptysis, fever or night sweats Gastrointestinal: Poor appetite, dysphagia, indigestion, abdominal pain, heartburn, eructation, naus ea, vomiting, hematemesis, jaundice, constipation, or diarrhea, abnormal stools (jaxson-colored, tarry, bloody, greasy, foul smelling), flatulence, hemorrhoids, recent changes in bowel habits. Genitourinary: Urgency, frequency, dysuria, nocturia, hematuria, polyuria, oliguria, unusual (or phani nge in) color of urine, stones, hesitancy, change in size of stream, dribbling, acute retention or in continence, libido, potency. Musculoskeletal: Pain, swelling, redness or heat of muscles or joints, limitation, of motion, muscular weakness, atrophy, cramps. Neurologic/Psychiatric: Convulsions, paralyses, tremor, incoordination, parasthesias, difficulties w ith memory of speech, sensory or motor disturbances, or muscular coordination (ataxia, tremor), emoti onal problems, anxiety, depression, previous psychiatric care, unusual perceptions, hallucinations. Allergy/Immunologic: Skin rash, anemia, bleeding tendency, polydipsia, polyuria, intolerance to heat or cold. PHYSICAL EXAMINATION: VITAL SIGNS: Blood pressures are 178/88, heart rate is 80, respiratory rate is 18, saturation 98%. GENERAL: The patient is moderately built and moderately nourished, does not appears to be in acute d istress. CARDIOVASCULAR: S1, S2 normal. No murmurs, rubs or gallops. LUNGS: Bilateral air entry was equal. No wheezing, no crackles. ABDOMEN: Soft and nontender. No guarding. No rebound tenderness. Bowel sounds normal. MUSCULOSKELETAL: No calf tenderness. No pedal edema. No tenderness. No joint swelling. SKIN: No cyanosis, no erythema, no rash, no pallor. NEUROLOGIC: Cranial nerve examination II-XII intact. No focal deficits were noted. LYMPHATICS: No evidence of any generalized lymph nodes were noted. PSYCHIATRIC: No signs of suicidal ideation. No signs of javid. LABORATORY DATA: Sodium is 137, potassium 3.9, chloride is 100, bicarbonate 26, BUN 9, creatinine 1. 07. Blood sugar is 278, calcium is 9.6. Troponin 0.07 and next troponin was 0.146. BNP was 43. WB C 7.4, hemoglobin is 14.3. EKG was reviewed by me, did not show any evidence of ST segment elevations at this time. Chest x-ray was unremarkable. No evidence of any pneumonia was noted. Chest x-ray was reviewed by odilon triplett. ASSESSMENT AND PLAN: 1. Acute chest pain, rule out myocardial infarction. 2. Non-ST elevation myocardial infarction. 3. Poorly controlled type 2 diabetes mellitus. 4. Uncontrolled hypertension. 5. Chronic asthma. 6. Morbid obesity. PLAN: 1. Plan is to closely monitor this patient on the tele floor. We will follow the trends of the trop onins and assess his chest pain. If the patient develops another evidence of chest pain, we will rep eat EKG at that point. We will do a stat echo as the patient is a high risk for coronary artery dise ase and has a persistent elevation of the troponins. I will consult Dr. Gagnon, who is the Cardiolog y on-call at this time. 2. We will start the patient on Coreg 6.25 mg p.o. b.i.d., and the patient is allergic to LISINOPRIL , we will continue the patient on hydralazine, he takes 25 mg p.o. t.i.d. and increase the dose to op timize his blood pressures. 3. We will continue the patient on aspirin 81 mg p.o. daily. We will increase atorvastatin to 40 mg p.o. daily. 4. The patient has a history of type 2 diabetes mellitus, poorly controlled. His blood sugars are 2 78. We will start the patient on Levemir at 20 units subcu at bedtime and with sliding scale insulin of moderate intensity. 5. We will check the hemoglobin A1c to look for control of the blood sugars. 6. The patient has a history of chronic asthma. We will not start him on any nebulizer treatments a t this time as the patient has no wheezing and no evidence of any exacerbation was noted. I will con tinue the patient on the Flonase. 7. DVT prophylaxis. We will start the patient on Lovenox at 1 mg/kg b.i.d. because of the NSTEMI. I spent 75 minutes with this patient.
[2017-07-15] MEDS ORDERED: Mag-Al 1200 mg/1200 mg/30 ML UDCUP PO PRN (18:20)
[2017-07-15 18:28] VITALS: BMI 32.0
[2017-07-15] MEDS ORDERED: FLU VACC TS2017-18 (>65YR) 0.5 ML SYRINGE IM ONE (19:00)
[2017-07-15] MEDS ORDERED: Prevnar 13-Val Conj/PF 0.5 ML SYRINGE IM ONE (19:00)
[2017-07-15 19:14] LABS: Troponin I 0.099 ng/mL (< 0.028)
[2017-07-15 19:22] LABS: Hemoglobin 13.3 g/dL (14.0-18.0); Platelet Count 242 thou/uL (130-400)
[2017-07-15] MEDS: Nitroglycerin 0.4 MG TAB (25 Tab Bottle) PO PRN ×3 (19:39→19:55)
[2017-07-15 19:40] LABS: Calc. Creatinine Clearance 124 mL/min (70-130); Estimated GFR-MDRD Greater than 90
[2017-07-15] MEDS: Acetaminophen 325 MG TAB PO PRN (19:48)
[2017-07-15] MEDS ORDERED: Morphine 5 MG/ML SYRINGE SLOW IVP PRN (20:48)
[2017-07-15] MEDS: Carvedilol 6.25 MG TAB PO SCH (21:02)
[2017-07-15] MEDS: Atorvastatin Calcium 40 MG TAB PO SCH (21:02)
[2017-07-15] MEDS: Docusate 100 MG CAP PO SCH (21:03)
[2017-07-15] MEDS: hydrALAZINE 25 MG TAB PO SCH (21:03)
[2017-07-15] MEDS: Insulin Detemir 100 UNITS/ML 20 UNITS in Admixture Fee 1 EACH SC SCH (21:04)
[2017-07-15] MEDS: Famotidine/PF 20 mg/2ml Vial SLOW IVP SCH (21:04)
[2017-07-15] MEDS: Sucralfate 1 GM TAB PO SCH (21:05)
[2017-07-15] MEDS: OLANZapine 5 MG TAB PO SCH (21:05)
[2017-07-15] MEDS: Nitroglycerin 2% Ointment 1 INCH/1 GM Packet TOP SCH (23:03)
[2017-07-16 05:38] LABS: #Eosinphils 0.2 thou/uL (0.0-0.7); #Lymphocytes 1.2 thou/uL (1.20-3.40); #Monocytes 0.9 thou/uL (0.11-0.59); #Neutrophils 5.1 thou/uL (1.40-6.50); %Basophils 0.7 % (0.0-1.0); %Eosinophils 3.1 % (0.0-10.0); %Lymphocytes 16.2 % (21.0-51.0); %Monocytes 12.2 % (0.0-10.0); %Neutrophils 67.8 % (42.0-75.0); Hemoglobin 12.8 g/dL (14.0-18.0); Mean Corpuscular HGB CONC 32.5 g/dL (32.0-36.0); Mean Corpuscular Hemoglobin 29.8 pg (27.0-31.0); Mean Corpuscular Volume 91.7 fl (80.0-94.0); Mean Platelet Volume 6.6 fL (7.4-10.4); Platelet Count 237 thou/uL (130-400); RBC Distribution Width 12.5 % (11.5-14.5); Red Blood Cell (RBC) Count 4.31 mill/uL (4.70-6.10); White Blood Cell (WBC) Count 7.5 thou/uL (4.8-10.8)
[2017-07-16] MEDS: HYDROcodone/Acetaminophen 5/325 mg Tablet PO PRN ×2 (05:44→16:41)
[2017-07-16 05:55] LABS: Anion Gap 11 mmol/L (10-20); BUN (Urea Nitrogen) 10 mg/dL (8.4-25.7); Calc. Creatinine Clearance 117 mL/min (70-130); Calcium 8.7 mg/dL (7.8-10.44); Carbon Dioxide 28 mmol/L (23-31); Cardiac Risk 2.5 (Less than 4.5); Chloride 101 mmol/L (98-107); Cholesterol 93 mg/dl (< 200 Desired); Estimated GFR-MDRD Greater than 90; Glucose 133 mg/dL (80-115); HDL Cholesterol 37 mg/dL (>60 Neg Risk); Potassium 3.9 mmol/L (3.5-5.1); Sodium 136 mmol/L (136-145)
[2017-07-16 06:07] LABS: Triglycerides 98 mg/dL (Less than 150)
[2017-07-16 06:12] LABS: LDL Cholesterol, Calculated 39 mg/dL
[2017-07-16] MEDS: Venlafaxine HCl 37.5 MG TAB PO SCH (07:48)
[2017-07-16] MEDS: Sucralfate 1 GM TAB PO SCH ×4 (07:50→20:43)
[2017-07-16] MEDS: Nitroglycerin 2% Ointment 1 INCH/1 GM Packet TOP SCH ×3 (07:50→23:23)
[2017-07-16] MEDS ORDERED: Hydrochlorothiazide 25 MG TAB PO SCH (09:00)
[2017-07-16] MEDS: Aspirin 325 MG TAB PO SCH (09:33)
[2017-07-16] MEDS: Potassium Chloride 10 MEQ TAB PO SCH (09:34)
[2017-07-16] MEDS: Carvedilol 6.25 MG TAB PO SCH ×2 (09:34→20:41)
[2017-07-16] MEDS: Docusate 100 MG CAP PO SCH ×2 (09:34→20:41)
[2017-07-16] MEDS: hydrALAZINE 25 MG TAB PO SCH ×3 (09:34→20:42)
[2017-07-16] MEDS: Hydrochlorothiazide 25 MG TAB PO SCH (09:35)
[2017-07-16] MEDS: Enoxaparin Sodium 100 MG/ML SYRINGE SC SCH ×2 (09:36→20:42)
[2017-07-16] MEDS: Famotidine/PF 20 mg/2ml Vial SLOW IVP SCH (09:36)
--- NOTE | 2017-07-16 12:16 | PDOC.PN ---
- Subjective Encounter Start Date: 07/16/17 Encounter Start Time: 11:30 Patient is seen today, alert and oriented. had persitant Trop elevation with intermittant chest pain improved with Nitro patch, Waiting on Echo and Cardiology evaluation. - Objective Resuscitation Status: Resuscitation Status FULL:Full Resuscitation MAR Reviewed: Yes Vital Signs & Weight: Vital Signs (12 hours) Temp Pulse Resp BP Pulse Ox 07/16/17 08:00 97.9 F 73 18 07/16/17 04:23 97.9 F 73 18 157/86 H 97 Result Diagrams: 07/16/17 05:11 07/16/17 05:11 Additional Labs: Accuchecks 07/16/17 07/16/17 07/15/17 11:13 05:42 20:28 POC Glucose 184 H 132 H 133 H 07/15/17 18:45 POC Glucose 109 Radiology Reviewed by me: Yes Phys Exam - Physical Examination HEENT: PERRLA, moist MMs Neck: no nodes, no JVD Respiratory: no wheezing, no rales Cardiovascular: RRR, no significant murmur Gastrointestinal: soft, non-tender Musculoskeletal: no edema, pulses present Neurological: non-focal, normal sensation Dx/Plan (1) NSTEMI (non-ST elevated myocardial infarction) Code(s): I21.4 - NON-ST ELEVATION (NSTEMI) MYOCARDIAL INFARCTION Status: Acute Comment: Pt is on Aspirin, BB, ARB, Stbale, pending Echo and Cardiology evalaution for possible Cath or stress test, if Troponins tremnding down. (2) Hypertensive urgency Code(s): I10 - ESSENTIAL (PRIMARY) HYPERTENSION Status: Acute Comment: Increase Losartan to 100mg , BP at goal. (3) Bipolar disorder Code(s): F31.9 - BIPOLAR DISORDER, UNSPECIFIED Status: Chronic Comment: Continue on Olanzapine, stbale now. (4) CKD (chronic kidney disease) stage 2, GFR 60-89 ml/min Code(s): N18.2 - CHRONIC KIDNEY DISEASE, STAGE 2 (MILD) Status: Chronic Comment: Stbale Renal fucntions, Continue to Monitor. (5) Chronic migraine Code(s): G43.709 - CHRONIC MIGRAINE W/O AURA, NOT INTRACTABLE, W/O STAT MIGR Status: Chronic Comment: Pt is given [facility] pRN. Stbale no migraine. (6) Diabetes type 2, controlled Code(s): E11.9 - TYPE 2 DIABETES MELLITUS WITHOUT COMPLICATIONS Status: Chronic Comment: Continue with SSI, Poorly controlled at Home, HbA1C is 8. (7) Schizoaffective disorder Code(s): F25.9 - SCHIZOAFFECTIVE DISORDER, UNSPECIFIED Status: Chronic Qualifiers: Schizoaffective disorder type: bipolar Qualified Code(s): F25.0 - Schizoaffective disorder, bipolar type Comment: Continue on Olanzapine, multiple doses from different pharmacies, discussed with nurse to start him on recent dose. No maniac symptoms yet. - Plan cont current plan of care, plan discussed w/ family, PT/OT, respiratory therapy , incentive spirometry, DVT proph w/lovenox * . - Discharge Day Encounter end time: 12:00 Review of Systems - Review of Systems Constitutional: negative: fever, chills, sweats, weakness, malaise, other Eyes: negative: Pain, Vision Change, Conjunctivae Inflammation, Eyelid Inflammation, Redness, Other ENT: negative: Ear Pain, Ear Discharge, Nose Pain, Nose Discharge, Nose Congestion, Mouth Pain, Mouth Swelling, Throat Pain, Throat Swelling, Other Respiratory: negative: Cough, Dry, Shortness of Breath, Hemoptysis, SOB with Excertion, Pleuritic Pain, Sputum, Wheezing Cardiovascular: chest pain. negative: palpitations, orthopnea, paroxysmal nocturnal dyspnea, edema, light headedness, other Gastrointestinal: negative: Nausea, Vomiting, Abdominal Pain, Diarrhea, Constipation, Melena, Hematochezia, Other Musculoskeletal: negative: Neck Pain, Shoulder Pain, Arm Pain, Back Pain, Hand Pain, Leg Pain, Foot Pain, Other Skin: negative: Rash, Lesions, Darnell, Bruising, Other - Medications/Allergies Allergies/Adverse Reactions: Allergies Allergy/AdvReac Type Severity Reaction Status Date / Time sumatriptan [From Imitrex] Allergy Intermediate Verified 07/15/17 18:28 diltiazem [From Cardizem] Allergy Mild Verified 07/15/17 18:28 lisinopril Allergy Mild Verified 07/15/17 18:28 metoclopramide [From Reglan] Allergy Mild Verified 07/15/17 18:28 Medications: Current Medications Acetaminophen (Tylenol) 650 mg PO Q4H PRN PRN Reason: Headache/Fever or Pain Last Admin: 07/15/17 19:48 Dose: 650 mg Hydrocodone Bitart/Acetaminophen ([facility] 5/325) 1 tab PO Q4H PRN PRN Reason: Moderate Pain (4-6) Last Admin: 07/16/17 05:44 Dose: 1 tab Al Hydroxide/Mg Hydroxide (Maalox) 30 ml PO Q6H PRN PRN Reason: Heartburn or Indigestion Aspirin (Aspirin) 325 mg PO DAILY ON LICENSE OF [facility] Last Admin: 07/16/17 09:33 Dose: 325 mg Atorvastatin Calcium (Lipitor) 40 mg PO HS ON LICENSE OF [facility] Last Admin: 07/15/17 21:02 Dose: 40 mg Carvedilol (Coreg) 6.25 mg PO BID ON LICENSE OF [facility] Last Admin: 07/16/17 09:34 Dose: 6.25 mg Dextrose/Water (Dextrose 50%) 25 gm SLOW IVP PRN PRN PRN Reason: Hypoglycemia Docusate Sodium (Colace) 100 mg PO BID ON LICENSE OF [facility] Last Admin: 07/16/17 09:34 Dose: 100 mg Enoxaparin Sodium (Lovenox) 95 mg SC 0900,2100 ON LICENSE OF [facility] Last Admin: 07/16/17 09:36 Dose: 95 mg Famotidine (Pepcid) 20 mg SLOW IVP Q12HR ON LICENSE OF [facility] Last Admin: 07/16/17 09:36 Dose: 20 mg Fluticasone Propionate (Flonase Nasal [place]) 0 gm NASAL PRN PRN PRN Reason: Nasal Congestion Glucagon (Glucagon) 1 mg IM PRN PRN PRN Reason: Hypoglycemia Hydralazine HCl (Apresoline) 25 mg PO TID ON LICENSE OF [facility] Last Admin: 07/16/17 09:34 Dose: 25 mg Hydrochlorothiazide (Hydrochlorothiazide) 12.5 mg PO DAILY ON LICENSE OF [facility] Last Admin: 07/16/17 09:35 Dose: 12.5 mg Dextrose/Water (D5w) 1,000 mls @ 0 mls/hr IV .Q0M PRN; As Directed PRN Reason: Hypoglycemia Insulin Detemir 20 units/ (Miscellaneous Medication) 0.2 mls @ 0 mls/hr SC [facility] Last Admin: 07/15/17 21:04 Dose: 0.2 mls Insulin Human Lispro (Humalog) 0 units SC .MODERATE SLIDING SC PRN PRN Reason: Moderate Correctional Scale Last Admin: 07/16/17 11:28 Dose: 2 units Morphine Sulfate (Morphine) 3 mg SLOW IVP Q4H PRN PRN Reason: PAIN UNRELIEVED BY NTG Last Admin: 07/15/17 21:06 Dose: 3 mg Nitroglycerin (Nitro-Bid 2% Ointment) 0.5 inch TOP 0800,1600,2359 ON LICENSE OF [facility] Last Admin: 07/16/17 07:50 Dose: 0.5 inch Nitroglycerin (Nitrostat) 0.4 mg PO Q5MIN PRN PRN Reason: Chest Pain Last Admin: 07/15/17 19:55 Dose: 0.4 mg Olanzapine (Zyprexa) 7.5 mg PO HS ON LICENSE OF [facility] Last Admin: 07/15/17 21:05 Dose: 7.5 mg Ondansetron HCl (Zofran) 4 mg IVP Q6H PRN PRN Reason: Nausea/Vomiting Potassium Chloride (Klor-Con 10) 10 meq PO DAILY ON [facility] OF [facility] Last Admin: 07/16/17 09:34 Dose: 10 meq Sucralfate (Carafate) 1 gm PO ACHS ON LICENSE OF [facility] Last Admin: 07/16/17 11:26 Dose: 1 gm Venlafaxine HCl (Effexor) 37.5 mg PO DAILY ON LICENSE OF [facility] Last Admin: 07/16/17 07:48 Dose: 37.5 mg
[2017-07-16] MEDS ORDERED: Lorazepam 0.5 MG TAB PO PRN (12:36)
[2017-07-16] MEDS: busPIRone HCl 5 MG TAB PO SCH ×2 (14:16→20:41)
[2017-07-16] MEDS: Benzonatate 100 MG CAP PO PRN (14:16)
[2017-07-16] MEDS: Acetaminophen 325 MG TAB PO PRN (15:10)
--- NOTE | 2017-07-16 16:20 | CON ---
DATE OF CONSULTATION: 07/16/2017 PRIMARY GENERATION TECHNOLOGIST: Dr. Nitish Cooney. REASON FOR CONSULTATION: Chest pain. HISTORY OF PRESENT ILLNESS: Mr. Gonzales is a very pleasant 66-year-old white gentleman, who com es to the hospital for chest pain. He was at home sleeping, and at around 5:00 a.m., he was woken up by a sudden onset of chest pain in the left precordium, radiated to the left arm. He came in for . He has a significant history of several episodes of chest pain that have landed him in the hospi manju. Dr. Cooney has seen him in the past for this, and in 2014, he had a heart catheterization du e to recurrent admissions for chest pain and he had normal coronary anatomy. More recently in of last year, he came in for chest pain again and had a stress that was normal with normal LV funct ion. Cardiology is being consulted for further evaluation of his chest pain and his troponins have b een indeterminate. PAST MEDICAL HISTORY: 1. Type 2 diabetes. 2. Hypertension. 3. Hyperlipidemia. 4. History of TIAs in the past. 5. Normal coronaries in 2014. PAST SURGICAL HISTORY: 1. Prostate biopsy. 2. Left heart catheterization as above. SOCIAL HISTORY: No tobacco or drugs. Social alcohol use. FAMILY HISTORY: Father had an NH at age 40 and brother had an NH at age 50s. OUTPATIENT MEDICATIONS: 1. Aspirin 81 a day. 2. Atorvastatin 10 mg a day. 3. Fluticasone. 4. Glipizide 5 mg a day. 5. Hydralazine 25 mg t.i.d. 6. Metformin 500 mg b.i.d. 7. Metoprolol 50 mg q.12 hours. 8. Olanzapine. 9. Venlafaxine. ALLERGIES: SUMATRIPTAN, DILTIAZEM, LISINOPRIL, and METOCLOPRAMIDE. REVIEW OF SYSTEMS: A 12-point review of systems was done and is all negative, unless stated in the h istory of present illness. PHYSICAL EXAMINATION: VITAL SIGNS: Temperature 99.4, pulse 90, respiratory rate 19, satting 96% on room air, and blood pre ssure 153/86. GENERAL: Awake, alert, oriented x3, in no distress. HEENT: Normocephalic, atraumatic. NECK: Supple. LUNGS: Clear. CARDIOVASCULAR: S1 and S2, no S3 or S4, no murmurs or rubs. ABDOMEN: Soft, positive bowel sounds. EXTREMITIES: No edema. SKIN: Warm and dry. LABORATORY WORK: Reviewed. CBC unremarkable. CMP is unremarkable. GFR was greater than 90. Tropo thang was 0.07, 0.14, 0.09, 0.07. Triglycerides of 98, cholesterol of 93, LDL of 39, HDL of 37, lipase was 29. EKG was reviewed. ASSESSMENT AND PLAN: 1. Chest pain: He has had several admissions for the same reason with indeterminate troponins in th e past as well as negative troponins most of the time. We will get an echocardiogram, and if his lef t ventricular function is different or has any regional wall motion abnormalities, he may need heart catheterization. Otherwise, I think this is related to his chronic episodes of chest pain. 2. Further recommendations, results of the echocardiogram and Dr. Cooney tomorrow morning.
[2017-07-16] MEDS: Mometasone/Formoterol 120 PUFF INHALER INH SCH (20:14)
[2017-07-16] MEDS: Atorvastatin Calcium 40 MG TAB PO SCH (20:41)
[2017-07-16] MEDS: Famotidine 20 MG TAB PO SCH (20:42)
[2017-07-16] MEDS: Insulin Detemir 100 UNITS/ML 20 UNITS in Admixture Fee 1 EACH SC SCH (20:43)
[2017-07-16] MEDS: OLANZapine 5 MG TAB PO SCH (21:01)
[2017-07-17] MEDS: hydrALAZINE 25 MG TAB PO SCH ×3 (07:45→21:15)
[2017-07-17] MEDS: Hydrochlorothiazide 25 MG TAB PO SCH (07:46)
[2017-07-17] MEDS: Carvedilol 6.25 MG TAB PO SCH ×2 (07:46→16:22)
[2017-07-17] MEDS: Venlafaxine HCl 37.5 MG TAB PO SCH (07:47)
[2017-07-17] MEDS: busPIRone HCl 5 MG TAB PO SCH ×3 (07:47→21:15)
[2017-07-17] MEDS: Famotidine 20 MG TAB PO SCH ×2 (07:47→21:15)
[2017-07-17] MEDS: Docusate 100 MG CAP PO SCH ×2 (07:48→21:15)
[2017-07-17] MEDS: Mometasone/Formoterol 120 PUFF INHALER INH SCH ×2 (07:48→19:41)
[2017-07-17] MEDS: Ondansetron PF 4 MG/2 ML Vial IVP PRN ×2 (08:10→16:20)
[2017-07-17] MEDS ORDERED: Sodium Chloride 0.65% Nasal 44 ML BOT EA NARE PRN (09:28)
[2017-07-17] MEDS ORDERED: Loratadine 10 MG TAB PO PRN (09:28)
[2017-07-17] MEDS ORDERED: Communication Order-Pharmacy FS SCH (09:30)
[2017-07-17] MEDS ORDERED: Sodium Chloride 0.9% 1,000 ML IV SCH ×2 (09:30→15:00)
--- NOTE | 2017-07-17 09:34 | PDOC.PN ---
- Subjective Encounter Start Date: 07/17/17 Encounter Start Time: 09:31 Subjective: nsg notes rev, negra ovn, no new c/o, no more chest pain, pt attributes to -: nitro patch placement. c/o sinusitis "i hope i wont need surgery" no new -: c/o - Objective Resuscitation Status: Resuscitation Status FULL:Full Resuscitation Vital Signs & Weight: Vital Signs (12 hours) Temp Pulse Resp BP Pulse Ox 07/17/17 07:40 97.6 F 90 18 181/104 H 96 07/17/17 05:14 97.8 F 79 20 169/98 H Weight Weight 208 lb 12.8 oz I&O: 07/16/17 07/17/17 07/18/17 06:59 06:59 06:59 Intake Total 1450 Output Total 2925 Balance -1475 Result Diagrams: 07/16/17 05:11 07/16/17 05:11 Additional Labs: Accuchecks 07/17/17 07/16/17 07/16/17 05:30 20:30 16:17 POC Glucose 129 H 172 H 150 H 07/16/17 11:13 POC Glucose 184 H Phys Exam - Physical Examination Constitutional: NAD HEENT: PERRLA, moist MMs, oral pharynx no lesions Neck: no nodes, no JVD Respiratory: no wheezing, no rales, no rhonchi, clear to auscultation bilateral Cardiovascular: RRR, no significant murmur, no rub Gastrointestinal: soft, non-tender, positive bowel sounds Musculoskeletal: no edema, pulses present Neurological: moves all 4 limbs Psychiatric: normal affect Dx/Plan - Plan * troponin elevation * appreciate cardiology c/s - prev evaluation for structural heart disease has been negative * ECHO on adm poor views 2/2 habitus but otherwise negative * continue to monitor on tele hypertensive urgency * improving. will increase carvedilol from 6.25 BID to 12.5 PO BID * continue to monitor sinusitis * conservative mgmt with flonase, saline spray, claritin prn * d/w pt doubt need for surgery at this time DM2 * continue to monitor bipolar / schizoaffective d/o? * continue home regimen * appears to be stable @ this time * continue to monitor diet: cardiac activity: as enid Review of Systems - Medications/Allergies Allergies/Adverse Reactions: Allergies Allergy/AdvReac Type Severity Reaction Status Date / Time sumatriptan [From Imitrex] Allergy Intermediate Verified 07/15/17 18:28 diltiazem [From Cardizem] Allergy Mild Verified 07/15/17 18:28 lisinopril Allergy Mild Verified 07/15/17 18:28 metoclopramide [From Reglan] Allergy Mild Verified 07/15/17 18:28 Medications: Current Medications Acetaminophen (Tylenol) 650 mg PO Q4H PRN PRN Reason: Headache/Fever or Pain Last Admin: 07/16/17 15:10 Dose: 650 mg Hydrocodone Bitart/Acetaminophen ([place] 5/325) 1 tab PO Q4H PRN PRN Reason: Moderate Pain (4-6) Last Admin: 07/16/17 16:41 Dose: 1 tab Al Hydroxide/Mg Hydroxide (Maalox) 30 ml PO Q6H PRN PRN Reason: Heartburn or Indigestion Aspirin (Aspirin) 325 mg PO DAILY [facility] Last Admin: 07/16/17 09:33 Dose: 325 mg Atorvastatin Calcium (Lipitor) 40 mg PO [facility] Last Admin: 07/16/17 20:41 Dose: 40 mg Benzonatate (Tessalon) 100 mg PO Q6H PRN PRN Reason: Cough Last Admin: 07/16/17 14:16 Dose: 100 mg Buspirone HCl (Buspar) 5 mg PO TID [facility] Last Admin: 07/17/17 07:47 Dose: 5 mg Carvedilol (Coreg) 12.5 mg PO BID-[facility] Dextrose/Water (Dextrose 50%) 25 gm SLOW IVP PRN PRN PRN Reason: Hypoglycemia Docusate Sodium (Colace) 100 mg PO BID [facility] Last Admin: 07/17/17 07:48 Dose: 100 mg Enoxaparin Sodium (Lovenox) 95 mg SC 0900,2100 [facility] Last Admin: 07/16/17 20:42 Dose: 95 mg Famotidine (Pepcid) 20 mg PO BID [facility] Last Admin: 07/17/17 07:47 Dose: 20 mg Fluticasone Propionate (Flonase Nasal [place]) 0 gm NASAL PRN PRN PRN Reason: Nasal Congestion Glucagon (Glucagon) 1 mg IM PRN PRN PRN Reason: Hypoglycemia Hydralazine HCl (Apresoline) 25 mg PO TID [facility] Last Admin: 07/17/17 07:45 Dose: 25 mg Hydrochlorothiazide (Hydrochlorothiazide) 12.5 mg PO DAILY [facility] Last Admin: 07/17/17 07:46 Dose: 12.5 mg Dextrose/Water (D5w) 1,000 mls @ 0 mls/hr IV .Q0M PRN; As Directed PRN Reason: Hypoglycemia Insulin Detemir 20 units/ (Miscellaneous Medication) 0.2 mls @ 0 mls/hr SC [facility] Last Admin: 07/16/17 20:43 Dose: 0.2 mls Sodium Chloride (Normal Saline 0.9%) 1,000 mls @ 100 mls/hr IV .Q10H [facility] Insulin Human Lispro (Humalog) 0 units SC .MODERATE SLIDING SC PRN PRN Reason: Moderate Correctional Scale Last Admin: 07/16/17 11:28 Dose: 2 units Loratadine (Claritin) 10 mg PO DAILYPRN PRN PRN Reason: Allergies Lorazepam (Ativan) 0.5 mg PO Q6H PRN PRN Reason: Anxiety Miscellaneous Information (Communication Order-Pharmacy) 0 each FS ONE [facility] Mometasone Furoate/Formoterol Fumar (Dulera 100 Mcg/5 Mcg Inhaler) 2 puff INH BID-RT [facility] Last Admin: 07/17/17 07:48 Dose: 2 puff Morphine Sulfate (Morphine) 3 mg SLOW IVP Q4H PRN PRN Reason: PAIN UNRELIEVED BY NTG Last Admin: 07/15/17 21:06 Dose: 3 mg Nitroglycerin (Nitro-Bid 2% Ointment) 0.5 inch TOP 0800,1600,2359 [facility] Last Admin: 07/16/17 23:23 Dose: 0.5 inch Nitroglycerin (Nitrostat) 0.4 mg PO Q5MIN PRN PRN Reason: Chest Pain Last Admin: 07/15/17 19:55 Dose: 0.4 mg Olanzapine (Zyprexa) 7.5 mg PO [facility] Last Admin: 07/16/17 21:01 Dose: 7.5 mg Ondansetron HCl (Zofran) 4 mg IVP Q6H PRN PRN Reason: Nausea/Vomiting Last Admin: 07/17/17 08:10 Dose: 4 mg Potassium Chloride (Klor-Con 10) 10 meq PO DAILY [facility] Last Admin: 07/16/17 09:34 Dose: 10 meq Sodium Chloride ([place] Nasal [place] 0.65%) 1 ml EA NARE TID PRN PRN Reason: Nasal Congestion Sucralfate (Carafate) 1 gm PO ACHS [facility] Last Admin: 07/16/17 20:43 Dose: 1 gm Venlafaxine HCl (Effexor) 37.5 mg PO DAILY [facility] Last Admin: 07/17/17 07:47 Dose: 37.5 mg
[2017-07-17] MEDS: Sucralfate 1 GM TAB PO SCH ×4 (10:03→21:17)
[2017-07-17] MEDS ORDERED: Iopamidol 370 76% 100 ML VIAL ONE (11:03)
--- NOTE | 2017-07-17 11:53 | EKG ---
Test Reason : STAT Blood Pressure : / mmHG Vent. Rate : 099 BPM Atrial Rate : 099 BPM P-R Int : 166 ms QRS Dur : 094 ms QT Int : 366 ms P-R-T Axes : 065 -46 038 degrees QTc Int : 469 ms Normal sinus rhythm Left anterior fascicular block Voltage criteria for left ventricular hypertrophy Abnormal ECG When compared with ECG of 15-JUL-2017 15:27, (Unconfirmed) Borderline criteria for Lateral infarct are no longer Present Confirmed by CHRISTINA PAK ([id number]) on 07/17/2017 11:53:17 AM Referred By: Confirmed By:CHRISTINA PAK
[2017-07-17] MEDS: Benzonatate 100 MG CAP PO PRN (11:54)
[2017-07-17] MEDS ORDERED: Heparin 0 ML ONE (13:15)
[2017-07-17] MEDS ORDERED: Nitroglycerin 100MG/250ML BOT 250 ML ONE (13:41)
[2017-07-17] MEDS ORDERED: Verapamil 5 MG/2 ML VIAL ONE (13:41)
[2017-07-17] MEDS ORDERED: Heparin 10,000 UNITS/1 ML VIAL ONE (13:41)
--- NOTE | 2017-07-17 14:12 | PRG ---
DATE OF SERVICE: 07/17/2017 Mr. Gonzales states he had chest pain last evening. He had total relief with nitroglycerin. He underwent coronary angiography in 2017 and not found to have significant coronary disease. He als o underwent a noninvasive stress study last year with no significant disease. I discussed medical therapy versus proceeding with coronary angiography. I have discussed risks and benefits of both, he decided to proceed with coronary angiography. I discussed the procedure in full detail with Mr. Gonzales. The risks include, but are not limited to following: , stroke, [place], need for emergency surgery, loss of limb, bleeding, and infection, as well as a reaction to the d ye causing kidney failure and needing long-term dialysis. I also discussed the risks of PCI to inclu de all of the above including coronary dissection and perforation in addition to acute stent thrombos is and restenosis. All questions about the procedure were answered. Given the above, the patient ag charly to proceed with coronary angiography and possible PCI. I also discussed drug-coated versus nondrug coated stent placement. There are no contraindications t o proceed if needed. He states he has no bleeding issues, can be compliant over the next year. No b ack injections. He does understand the importance of not missing a single dose. Further recommendat ions pending the above.
[2017-07-17] MEDS: Potassium Chloride 10 MEQ TAB PO SCH (14:32)
[2017-07-17] MEDS: Aspirin 325 MG TAB PO SCH (14:32)
[2017-07-17] MEDS: Nitroglycerin 2% Ointment 1 INCH/1 GM Packet TOP SCH ×2 (14:32→16:22)
[2017-07-17] MEDS: HYDROcodone/Acetaminophen 5/325 mg Tablet PO PRN (14:38)
[2017-07-17] MEDS: Enoxaparin Sodium 100 MG/ML SYRINGE SC SCH (14:41)
[2017-07-17] MEDS ORDERED: Nitroglycerin 0.4 MG TAB (25 Tab Bottle) SL PRN (14:58)
[2017-07-17] MEDS ORDERED: traMADol HCl 50 MG TAB PO PRN (14:58)
[2017-07-17] MEDS ORDERED: Acetaminophen/Codeine 30-300mg Tablet PO PRN ×2 (14:58)
[2017-07-17] MEDS ORDERED: Sodium Chloride 0.9% 200 ML IV PRN (15:00)
[2017-07-17 19:19] LABS: Hemoglobin 14.1 g/dL (14.0-18.0); Platelet Count 258 thou/uL (130-400)
[2017-07-17] MEDS: Atorvastatin Calcium 40 MG TAB PO SCH (21:15)
[2017-07-17] MEDS: Insulin Detemir 100 UNITS/ML 20 UNITS in Admixture Fee 1 EACH SC SCH (21:16)
[2017-07-17] MEDS: OLANZapine 5 MG TAB PO SCH (21:16)
[2017-07-17] MEDS: Fluticasone Propionate Nasal Spray 16 gm Bottle NASAL PRN (21:17)
[2017-07-18] MEDS: Nitroglycerin 2% Ointment 1 INCH/1 GM Packet TOP SCH ×2 (04:09→09:18)
[2017-07-18] MEDS ORDERED: Fentanyl 100 MCG/2 ML VIAL ONE (07:06)
[2017-07-18] MEDS: Mometasone/Formoterol 120 PUFF INHALER INH SCH (07:22)
[2017-07-18] MEDS: Fluticasone Propionate Nasal Spray 16 gm Bottle NASAL PRN (09:19)
[2017-07-18] MEDS: Sucralfate 1 GM TAB PO SCH (09:20)
[2017-07-18] MEDS: Potassium Chloride 10 MEQ TAB PO SCH (09:20)
[2017-07-18] MEDS: Acetaminophen 325 MG TAB PO PRN (09:20)
[2017-07-18] MEDS: Aspirin 325 MG TAB PO SCH (09:20)
[2017-07-18] MEDS: Hydrochlorothiazide 25 MG TAB PO SCH (09:21)
[2017-07-18] MEDS: Venlafaxine HCl 37.5 MG TAB PO SCH (09:21)
[2017-07-18] MEDS: hydrALAZINE 25 MG TAB PO SCH (09:21)
[2017-07-18] MEDS: busPIRone HCl 5 MG TAB PO SCH (09:23)
[2017-07-18] MEDS: Docusate 100 MG CAP PO SCH (09:23)
[2017-07-18] MEDS: Famotidine 20 MG TAB PO SCH (09:23)
[2017-07-18] MEDS: Carvedilol 6.25 MG TAB PO SCH (09:37)
[2017-07-18 21:14] VITALS: TEMP 97.8
[2017-07-19 10:47] VITALS: BP 138/76
--- NOTE | 2017-07-29 17:23 | EKG ---
Test Reason : CHEST PAIN Blood Pressure : / mmHG Vent. Rate : 120 BPM Atrial Rate : 120 BPM P-R Int : 160 ms QRS Dur : 090 ms QT Int : 310 ms P-R-T Axes : 057 -43 058 degrees QTc Int : 438 ms Sinus tachycardia Possible Left atrial enlargement Left axis deviation Left ventricular hypertrophy Possible Lateral infarct , age undetermined Abnormal ECG Unchanged Confirmed by MAICOL BOWERS D.O. ([id number]), visual effects editor KATRIN EDGE ([id number] on 07/29/2017 5:23:17 PM Referred By: Confirmed By:MAICOL BOWERS D.O.
--- NOTE | 2017-08-12 15:12 | EKG ---
Test Reason : Blood Pressure : / mmHG Vent. Rate : 109 BPM Atrial Rate : 109 BPM P-R Int : 164 ms QRS Dur : 088 ms QT Int : 340 ms P-R-T Axes : 047 -42 021 degrees QTc Int : 457 ms Sinus tachycardia Possible Left atrial enlargement Left axis deviation Left ventricular hypertrophy Possible Lateral infarct , age undetermined Abnormal ECG Confirmed by KELLY GRIGSBY ([id number]), advertising editor KATRIN EDGE ([id number]) on 08/12/2017 3:12:34 PM Referred By: Confirmed By:KELLY GRIGSBY
--- NOTE | 2017-09-26 08:24 | DIS ---
DISCHARGE DIAGNOSES: 1. Troponin elevation, likely demand ischemia. 2. Hypertensive urgency, resolved. 3. Sinusitis, improved. BRIEF SUMMARY OF HOSPITAL COURSE: This is a 67-year-old male, who presented with initial chief complaint of chest pain. Please see the original H&P for full details surrounding his admission. The patient was monitored and seen by Cardiology due to troponin elevation and concern for coronary artery disease. The patient currently is being discharged without any evidence of structural cardiac disease. His symptoms felt to be precipitated by hypertensive urgency on admission and his home medication regimen has changed with an increase of carvedilol from 6.25 to 12.5 p.o. b.i.d. for improved blood pressure control. Also, accompanying his presentation is ongoing outpatient sinusitis, which has responded to conservative medical management. It is felt that perhaps this was contributed towards his hypertensive urgency and troponin elevation as above. Remained the patient's chronic medical issues including his type 2 diabetes and psychiatric issues have remained stable during this hospitalization. CONSULTATION: Cardiology. MEDICATION RECONCILIATION: Please see the EMR for full details. The patient will continue on his home regimen with the addition of a temporary supportive regimen of saline, nose spray, Claritin p.r.n., and Flonase. The patient's home carvedilol has also been changed from 6.25 mg p.o. b.i.d. to 12.5 mg p.o. b.i.d. PATIENT'S CONDITION AT DISCHARGE: At the time of discharge, patient is hemodynamically stable. He is tolerating his baseline cardiac diet and ambulating without difficulty or assistance. DISCHARGE FOLLOWUP INSTRUCTIONS: The patient is asked to follow up closely with his outpatient care team including his primary care provider in the next 1- 2 weeks and a routine follow up with Cardiology. SIGNIFICANT LABORATORIES AND IMAGING: Patient did undergo a PCI that did not require any stent placement. Please see the operative note for full details. Troponins during this hospitalization were 0.146 followed by 0.099 followed by 0.070, after which they were not further trended. Thank you for asking me care for the patient. Questions or concerns, contact me at [facility]. Greater than 30 minutes were spent coordinating discharge for the patient. OSWALD
== END 2017-07-18 16:00 | disposition home or self-care (01) | DRG 282 ==
LOC: ERS 10:46 → ERHOLD 16:28 → 2NO 17:21
PROVIDERS: ADMIT Family Medicine; ATTEND Family Medicine
PROC: B2101ZZ Fluoroscopy of Single Coronary Artery using Low Osmolar Contrast (ICD-10-PCS; principal; 2017-07-17)
PROC: B2151ZZ Fluoroscopy of Left Heart using Low Osmolar Contrast (ICD-10-PCS; 2017-07-17)
DX: I21.4 Non-ST elevation (NSTEMI) myocardial infarction (principal); E11.22 Type 2 diabetes mellitus with diabetic chronic kidney disease; F25.0 Schizoaffective disorder, bipolar type; J32.9 Chronic sinusitis, unspecified; F31.9 Bipolar disorder, unspecified; G43.709 Chronic migraine without aura, not intractable, without status migrainosus; I16.0 Hypertensive urgency; J45.909 Unspecified asthma, uncomplicated; Z86.73 Personal history of transient ischemic attack (TIA), and cerebral infarction without residual deficits; I12.9 Hypertensive chronic kidney disease with stage 1 through stage 4 chronic kidney disease, or unspecified chronic kidney disease; N18.2 Chronic kidney disease, stage 2 (mild); E66.01 Morbid (severe) obesity due to excess calories; E78.5 Hyperlipidemia, unspecified; Z68.31 Body mass index [BMI] 31.0-31.9, adult
CPT/HCPCS: 36415; 36416; 71045; 80048; 80053; 80061; 82550; 82553; 82565; 83036; 83690; 83880; 84484; 85014; 85018; 85025; 85049; 87804; 90471; 90682; 93005; 93010; 93306; 93458; 93798; 94760; 96361; 96372; 96374; J2270; G0008; G8978-GP-CI; G8979-GP-CI; G8980-GP-CI; G8987-GO-CI; G8988-GO-CI; G8989-GO-CI; J1644; J1650; J1815; J2405; J3010; Q2036; S0028

== ENCOUNTER 2017-07-20 19:36 | Emergency (ER) | payer MEDICARE, MEDICAID ==
[2017-07-20 20:07] LABS: #Eosinphils 0.3 thou/uL (0.0-0.7); #Monocytes 0.9 thou/uL (0.11-0.59); #Neutrophils 4.1 thou/uL (1.40-6.50); %Basophils 0.6 % (0.0-1.0); %Eosinophils 3.7 % (0.0-10.0); %Lymphocytes 27.4 % (21.0-51.0); %Monocytes 12.6 % (0.0-10.0); %Neutrophils 55.8 % (42.0-75.0); Hemoglobin 12.7 g/dL (14.0-18.0); Mean Corpuscular HGB CONC 33.4 g/dL (32.0-36.0); Mean Platelet Volume 6.7 fL (7.4-10.4); Platelet Count 269 thou/uL (130-400); RBC Distribution Width 12.3 % (11.5-14.5); Red Blood Cell (RBC) Count 4.23 mill/uL (4.70-6.10); White Blood Cell (WBC) Count 7.3 thou/uL (4.8-10.8)
[2017-07-20] MEDS ORDERED: Diazepam 5 MG TAB ONE (20:28)
[2017-07-20 20:32] LABS: ALT (SGPT) 64 U/L (8-55); AST (SGOT) 36 U/L (5-34); Albumin 3.8 g/dL (3.4-4.8); Alkaline Phosphatase 69 U/L (40-150); Anion Gap 12 mmol/L (10-20); BUN (Urea Nitrogen) 11 mg/dL (8.4-25.7); Bilirubin, Total 0.3 mg/dL (0.2-1.2); Calc. Creatinine Clearance 0 mL/min (70-130); Calcium 9.1 mg/dL (7.8-10.44); Carbon Dioxide 27 mmol/L (23-31); Chloride 99 mmol/L (98-107); Estimated GFR-MDRD 73; Globulin 3.6 g/dL (2.4-3.5); Glucose 155 mg/dL (80-115); Potassium 3.9 mmol/L (3.5-5.1); Protein, Total 7.4 g/dL (5.8-8.1); Sodium 134 mmol/L (136-145)
--- NOTE | 2017-07-20 20:32 | RAD ---
PORTABLE AP CHEST X-RAY 07/20/17 HISTORY: Chest pain. COMPARISON: 07/15/17. FINDINGS: The cardiac silhouette is magnified by projection. Pulmonary vasculature is within normal limits. The lungs are clear. There has been no interval change from prior study. IMPRESSION: No acute cardiopulmonary process. POS: [facility]
[2017-07-20 20:35] LABS: CKMB 1.5 ng/mL (0-6.6); Troponin I Less than 0.010 ng/mL (< 0.028)
--- NOTE | 2017-08-12 19:55 | EKG ---
Test Reason : CHEST PAIN Blood Pressure : / mmHG Vent. Rate : 078 BPM Atrial Rate : 078 BPM P-R Int : 164 ms QRS Dur : 098 ms QT Int : 390 ms P-R-T Axes : 052 -39 -01 degrees QTc Int : 444 ms Normal sinus rhythm Left axis deviation Voltage criteria for left ventricular hypertrophy Abnormal ECG Confirmed by MAGY GUERRERO ([id number]), restaurant expeditor KATRIN EDGE ([id number]) on 08/12/2017 7:54:59 PM Referred By: Confirmed By:MAGY GUERRERO
== END 2017-07-20 22:06 | disposition home or self-care (01) ==
LOC: ERS 19:36
DX: F41.9 Anxiety disorder, unspecified (principal); K21.9 Gastro-esophageal reflux disease without esophagitis; N40.0 Benign prostatic hyperplasia without lower urinary tract symptoms; I10 Essential (primary) hypertension; G43.909 Migraine, unspecified, not intractable, without status migrainosus; E11.9 Type 2 diabetes mellitus without complications; J45.909 Unspecified asthma, uncomplicated; Z86.73 Personal history of transient ischemic attack (TIA), and cerebral infarction without residual deficits; F32.9 Major depressive disorder, single episode, unspecified; F25.9 Schizoaffective disorder, unspecified; F43.10 Post-traumatic stress disorder, unspecified; Z79.899 Other long term (current) drug therapy; Z79.84 Long term (current) use of oral hypoglycemic drugs; Z79.82 Long term (current) use of aspirin
CPT/HCPCS: 36415; 71045; 80053; 82553; 84484; 85025; 93005; 94760

== ENCOUNTER 2017-08-03 21:01 | Emergency (ER) | payer MEDICARE, MEDICAID ==
--- NOTE | 2017-08-03 22:31 | RAD ---
CHEST TWO VIEWS 08/03/17 HISTORY: Cough. Chest pain. COMPARISON: 07/20/17. FINDINGS: The cardiac silhouette and pulmonary vasculature are unremarkable. Mediastinum is midline. There is n o confluent air space consolidation, pneumothorax, or pleural fluid apparent. IMPRESSION: No active cardiopulmonary abnormalities are demonstrated. POS: [facility]
[2017-08-03] MEDS ORDERED: Ondansetron ODT 4 MG TAB ONE (22:36)
== END 2017-08-03 22:40 | disposition home or self-care (01) ==
LOC: ERS 21:01
DX: J06.9 Acute upper respiratory infection, unspecified (principal); E11.9 Type 2 diabetes mellitus without complications; F32.9 Major depressive disorder, single episode, unspecified; F41.9 Anxiety disorder, unspecified; F25.9 Schizoaffective disorder, unspecified; F43.10 Post-traumatic stress disorder, unspecified; I10 Essential (primary) hypertension; J45.909 Unspecified asthma, uncomplicated; G43.909 Migraine, unspecified, not intractable, without status migrainosus; K21.9 Gastro-esophageal reflux disease without esophagitis; N40.0 Benign prostatic hyperplasia without lower urinary tract symptoms; Z86.73 Personal history of transient ischemic attack (TIA), and cerebral infarction without residual deficits
CPT/HCPCS: 71046; Q0162

== ENCOUNTER 2017-08-05 17:33 | Emergency (ER) | payer MEDICARE, MEDICAID ==
[2017-08-05 18:27] LABS: #Monocytes 0.7 thou/uL (0.11-0.59); #Neutrophils 7.7 thou/uL (1.40-6.50); %Basophils 0.3 % (0.0-1.0); %Eosinophils 0.3 % (0.0-10.0); %Lymphocytes 10.3 % (21.0-51.0); %Monocytes 7.8 % (0.0-10.0); %Neutrophils 81.3 % (42.0-75.0); Hemoglobin 13.7 g/dL (14.0-18.0); Mean Corpuscular HGB CONC 33.2 g/dL (32.0-36.0); Mean Corpuscular Hemoglobin 30.3 pg (27.0-31.0); Mean Corpuscular Volume 91.2 fl (80.0-94.0); Mean Platelet Volume 6.4 fL (7.4-10.4); Platelet Count 290 thou/uL (130-400); RBC Distribution Width 12.4 % (11.5-14.5); Red Blood Cell (RBC) Count 4.53 mill/uL (4.70-6.10); White Blood Cell (WBC) Count 9.5 thou/uL (4.8-10.8)
[2017-08-05 18:47] LABS: ALT (SGPT) 20 U/L (8-55); AST (SGOT) 22 U/L (5-34); Albumin 4.2 g/dL (3.4-4.8); Alkaline Phosphatase 82 U/L (40-150); Anion Gap 10 mmol/L (10-20); BUN (Urea Nitrogen) 17 mg/dL (8.4-25.7); Bilirubin, Total 0.3 mg/dL (0.2-1.2); Calc. Creatinine Clearance 0 mL/min (70-130); Calcium 9.7 mg/dL (7.8-10.44); Carbon Dioxide 30 mmol/L (23-31); Chloride 100 mmol/L (98-107); Estimated GFR-MDRD 84; Globulin 3.6 g/dL (2.4-3.5); Glucose 137 mg/dL (80-115); Potassium 4.2 mmol/L (3.5-5.1); Protein, Total 7.8 g/dL (5.8-8.1); Sodium 136 mmol/L (136-145)
[2017-08-05 18:52] LABS: CKMB 3.3 ng/mL (0-6.6); Troponin I Less than 0.010 ng/mL (< 0.028)
--- NOTE | 2017-08-05 19:03 | RAD ---
PORTABLE AP CHEST X-RAY 08/05/17 HISTORY: Back pain due to increased physical activity. COMPARISON: 07/20/17. FINDINGS: The cardiac silhouette is magnified by projection. Pulmonary vasculature is within normal limits. The lungs remain clear. Degenerative changes are seen in the thoracic spine. There are radiopaque densit ies overlying the right lung apex and right lung base which are likely related to overlying artifact (buttons). No other findings. IMPRESSION: No acute cardiopulmonary process. POS: [facility]
[2017-08-05 20:55] LABS: Troponin I Less than 0.010 ng/mL (< 0.028)
[2017-08-05] MEDS ORDERED: Diazepam 5 MG TAB ONE (21:01)
== END 2017-08-05 21:39 | disposition home or self-care (01) ==
LOC: ERS 17:33
DX: S29.012A Strain of muscle and tendon of back wall of thorax, initial encounter (principal); K21.9 Gastro-esophageal reflux disease without esophagitis; N40.0 Benign prostatic hyperplasia without lower urinary tract symptoms; E11.9 Type 2 diabetes mellitus without complications; I10 Essential (primary) hypertension; G43.909 Migraine, unspecified, not intractable, without status migrainosus; J45.909 Unspecified asthma, uncomplicated; F41.9 Anxiety disorder, unspecified; F25.9 Schizoaffective disorder, unspecified; F43.10 Post-traumatic stress disorder, unspecified; Z86.73 Personal history of transient ischemic attack (TIA), and cerebral infarction without residual deficits; X50.1XXA Overexertion from prolonged static or awkward postures, initial encounter
CPT/HCPCS: 36415; 71045; 80053; 82553; 84484; 85025; 93005

== ENCOUNTER 2017-08-25 16:59 | Emergency (ER) | payer MEDICARE, OTHER ==
[2017-08-25 18:31] LABS: #Eosinphils 0.3 thou/uL (0.0-0.7); #Lymphocytes 0.9 thou/uL (1.20-3.40); #Monocytes 0.9 thou/uL (0.11-0.59); #Neutrophils 4.6 thou/uL (1.40-6.50); %Basophils 0.5 % (0.0-1.0); %Lymphocytes 13.5 % (21.0-51.0); %Monocytes 13.5 % (0.0-10.0); %Neutrophils 68.4 % (42.0-75.0); Hemoglobin 13.6 g/dL (14.0-18.0); Mean Corpuscular HGB CONC 33.2 g/dL (32.0-36.0); Mean Corpuscular Hemoglobin 29.4 pg (27.0-31.0); Mean Corpuscular Volume 88.4 fl (80.0-94.0); Mean Platelet Volume 6.1 fL (7.4-10.4); Platelet Count 240 thou/uL (130-400); RBC Distribution Width 12.4 % (11.5-14.5); Red Blood Cell (RBC) Count 4.62 mill/uL (4.70-6.10); White Blood Cell (WBC) Count 6.7 thou/uL (4.8-10.8)
[2017-08-25 18:53] LABS: ALT (SGPT) 22 U/L (8-55); AST (SGOT) 15 U/L (5-34); Albumin 3.9 g/dL (3.4-4.8); Alkaline Phosphatase 77 U/L (40-150); Anion Gap 12 mmol/L (10-20); BUN (Urea Nitrogen) 6 mg/dL (8.4-25.7); Bilirubin, Total 0.3 mg/dL (0.2-1.2); Calc. Creatinine Clearance 0 mL/min (70-130); Calcium 9.1 mg/dL (7.8-10.44); Carbon Dioxide 25 mmol/L (23-31); Chloride 100 mmol/L (98-107); Estimated GFR-MDRD 82; Globulin 3.3 g/dL (2.4-3.5); Glucose 126 mg/dL (80-115); Potassium 3.9 mmol/L (3.5-5.1); Protein, Total 7.2 g/dL (5.8-8.1); Sodium 133 mmol/L (136-145)
[2017-08-25 18:58] LABS: CKMB 1.6 ng/mL (0-6.6); Troponin I Less than 0.010 ng/mL (< 0.028)
[2017-08-25] MEDS ORDERED: Acetaminophen 500 MG TAB ONE (18:59)
--- NOTE | 2017-08-25 19:11 | CT ---
NONCONTRAST CT HEAD: 08/25/17 HISTORY: Headache and intermittent heart palpitations that began today. Patient had migraine headache that be blessing one day ago. Patient has nausea. COMPARISON: 05/14/17. FINDINGS: There is no evidence of an acute infarction, hemorrhage, mass effect, or midline shift. There is mild cerebral volume loss not unexpected for the patient's age. The ventricular system is normal in size, shape and position. Again noted is opacification of the visualized ethmoidal air cells bilaterally w ith mucosal thickening in each sphenoid sinus, although opacification of the left sphenoid sinus has improved. Minimal mucosal thickening present in each frontal sinus. Maxillary antra are not imaged on this exam. Mastoid air cells are clear. No other interval change. IMPRESSION: 1. No acute intracranial abnormality is demonstrated. 2. Sinus disease which does appear improved from prior exam. POS: [facility]
[2017-08-25] MEDS ORDERED: Ketorolac Tromethamine 30 MG/ML VIAL ONE (19:34)
[2017-08-25] MEDS ORDERED: Ondansetron ODT 8 MG TAB ONE (19:49)
[2017-08-25] MEDS ORDERED: Ondansetron ODT 4 MG TAB ONE ×2 (19:50→19:59)
== END 2017-08-25 19:58 | disposition home or self-care (01) ==
LOC: ERS 16:59
DX: I10 Essential (primary) hypertension (principal); R51 Headache; K21.9 Gastro-esophageal reflux disease without esophagitis; N40.0 Benign prostatic hyperplasia without lower urinary tract symptoms; G43.909 Migraine, unspecified, not intractable, without status migrainosus; E11.9 Type 2 diabetes mellitus without complications; J45.909 Unspecified asthma, uncomplicated; Z86.73 Personal history of transient ischemic attack (TIA), and cerebral infarction without residual deficits; F41.9 Anxiety disorder, unspecified; F32.9 Major depressive disorder, single episode, unspecified; F43.10 Post-traumatic stress disorder, unspecified; F25.9 Schizoaffective disorder, unspecified
CPT/HCPCS: 36415; 70450; 80053; 82553; 84484; 85025; 93005; 96372; J1885; Q0162

== ENCOUNTER 2017-10-24 19:30 | Outpatient (CLI) | payer MEDICARE, MEDICAID | END 2017-10-24 19:31 | disposition home or self-care (01) | LOC: SLEEPLAB 19:30 | PROVIDERS: ATTEND Psychiatry & Neurology Neurology | DX: G47.10 Hypersomnia, unspecified (principal); I48.91 Unspecified atrial fibrillation; I49.3 Ventricular premature depolarization | CPT/HCPCS: 95810 ==

== ENCOUNTER 2018-01-12 19:57 | Emergency (ER) | payer MEDICARE, MEDICAID ==
[2018-01-12] MEDS ORDERED: Lidocaine 1% w/Epinephrine 1:100K 20 ML VIAL ONE (21:49)
[2018-01-12] MEDS ORDERED: Acetaminophen 500 MG TAB ONE (22:32)
[2018-01-12] MEDS ORDERED: Ketorolac Tromethamine 30 MG/ML VIAL ONE (22:33)
== END 2018-01-12 23:05 | disposition home or self-care (01) ==
LOC: ERS 19:57
DX: G43.709 Chronic migraine without aura, not intractable, without status migrainosus (principal); K21.9 Gastro-esophageal reflux disease without esophagitis; N40.0 Benign prostatic hyperplasia without lower urinary tract symptoms; I10 Essential (primary) hypertension; E11.9 Type 2 diabetes mellitus without complications; J45.909 Unspecified asthma, uncomplicated; Z86.73 Personal history of transient ischemic attack (TIA), and cerebral infarction without residual deficits; F25.9 Schizoaffective disorder, unspecified; F41.9 Anxiety disorder, unspecified; F32.9 Major depressive disorder, single episode, unspecified; F43.10 Post-traumatic stress disorder, unspecified; Z79.899 Other long term (current) drug therapy; Z79.82 Long term (current) use of aspirin; Z79.84 Long term (current) use of oral hypoglycemic drugs
CPT/HCPCS: 96372; J1885; J2001

== ENCOUNTER 2018-01-18 10:45 | Outpatient (CLI) | payer MEDICARE, MEDICAID | END 2018-01-18 10:46 | disposition home or self-care (01) | LOC: BICRAD 10:45 | PROVIDERS: ATTEND Internal Medicine | DX: R05 Cough (principal) | CPT/HCPCS: 70220; 71046 ==

== ENCOUNTER 2018-01-23 12:32 | Emergency (ER) | payer MEDICARE, OTHER ==
[2018-01-23 13:33] LABS: #Lymphocytes 0.8 thou/uL (1.20-3.40); #Monocytes 0.5 thou/uL (0.11-0.59); #Neutrophils 10.7 thou/uL (1.40-6.50); %Eosinophils 0.1 % (0.0-10.0); %Lymphocytes 6.9 % (21.0-51.0); Hemoglobin 14.2 g/dL (14.0-18.0); Mean Corpuscular HGB CONC 33.4 g/dL (32.0-36.0); Mean Corpuscular Hemoglobin 29.1 pg (27.0-31.0); Mean Platelet Volume 6.9 fL (7.4-10.4); Platelet Count 281 thou/uL (130-400); RBC Distribution Width 12.3 % (11.5-14.5); Red Blood Cell (RBC) Count 4.88 mill/uL (4.70-6.10); White Blood Cell (WBC) Count 12.1 thou/uL (4.8-10.8)
[2018-01-23 13:58] LABS: ALT (SGPT) 22 U/L (8-55); AST (SGOT) 14 U/L (5-34); Albumin 4.1 g/dL (3.4-4.8); Alkaline Phosphatase 78 U/L (40-150); Anion Gap 16 mmol/L (10-20); BUN (Urea Nitrogen) 18 mg/dL (8.4-25.7); Bilirubin, Total 0.4 mg/dL (0.2-1.2); Calc. Creatinine Clearance 0 mL/min (70-130); Calcium 9.7 mg/dL (7.8-10.44); Carbon Dioxide 23 mmol/L (23-31); Chloride 92 mmol/L (98-107); Estimated GFR-MDRD 54; Globulin 3.2 g/dL (2.4-3.5); Glucose 472 mg/dL (80-115); Potassium 3.7 mmol/L (3.5-5.1); Protein, Total 7.3 g/dL (5.8-8.1); Sodium 127 mmol/L (136-145)
[2018-01-23 16:33] LABS: Bilirubin Negative (Negative); Blood, Urine Negative (Negative); Clarity CLEAR (Clear); Glucose, Urine (Dipstick) 500 mg/dL (Negative); Leukocyte Negative (Negative); Nitrite Negative (Negative); Protein, Urine (Dipstick) Negative (Neg-Trace); Urobilinogen 0.2 mg/dL (0.2-1.0)
[2018-01-23] MEDS ORDERED: Acetaminophen 500 MG TAB ONE (16:35)
[2018-01-23] MEDS ORDERED: Insulin Regular 300 UNITS/3 ML VIAL ONE (16:35)
== END 2018-01-23 17:32 | disposition home or self-care (01) ==
LOC: ERS 12:32
DX: R51 Headache (principal); J45.909 Unspecified asthma, uncomplicated; K21.9 Gastro-esophageal reflux disease without esophagitis; F41.9 Anxiety disorder, unspecified; F32.9 Major depressive disorder, single episode, unspecified; Z86.73 Personal history of transient ischemic attack (TIA), and cerebral infarction without residual deficits
CPT/HCPCS: 36415; 36416; 80053; 81003; 82010; 85025; 96374; J1815

== ENCOUNTER 2018-01-28 12:50 | Emergency (ER) | payer MEDICARE, MEDICAID ==
[2018-01-28] MEDS ORDERED: Ketorolac Tromethamine 60 MG/2 ML VIAL ONE ×2 (13:28→13:32)
== END 2018-01-28 13:35 | disposition home or self-care (01) ==
LOC: ERS 12:50
DX: R51 Headache (principal); E11.65 Type 2 diabetes mellitus with hyperglycemia; K21.9 Gastro-esophageal reflux disease without esophagitis; N40.0 Benign prostatic hyperplasia without lower urinary tract symptoms; F41.9 Anxiety disorder, unspecified; F32.9 Major depressive disorder, single episode, unspecified; F25.9 Schizoaffective disorder, unspecified; Z79.82 Long term (current) use of aspirin; Z79.84 Long term (current) use of oral hypoglycemic drugs; Z79.899 Other long term (current) drug therapy
CPT/HCPCS: 36416; 99284; J1885

== ENCOUNTER 2018-02-14 13:24 | Outpatient (CLI) | payer MEDICARE, MEDICAID | END 2018-02-14 13:25 | disposition home or self-care (01) | LOC: CTENTCT 13:24 | PROVIDERS: ATTEND Specialist | DX: J32.9 Chronic sinusitis, unspecified (principal) | CPT/HCPCS: 70486 ==

== ENCOUNTER 2018-02-15 11:45 | Emergency (ER) | payer MEDICARE, MEDICAID ==
[~2018-02-15 11:45] MED LIST: Iopamidol 370 76% 100 ML VIAL ONE
[2018-02-15 12:26] LABS: #Eosinphils 0.1 thou/uL (0.0-0.7); #Lymphocytes 1.1 thou/uL (1.20-3.40); #Monocytes 0.8 thou/uL (0.11-0.59); %Basophils 0.2 % (0.0-1.0); %Eosinophils 0.8 % (0.0-10.0); %Lymphocytes 12.4 % (21.0-51.0); %Monocytes 9.3 % (0.0-10.0); %Neutrophils 77.3 % (42.0-75.0); Hemoglobin 13.8 g/dL (14.0-18.0); Mean Corpuscular HGB CONC 33.4 g/dL (32.0-36.0); Mean Corpuscular Hemoglobin 29.6 pg (27.0-31.0); Mean Corpuscular Volume 88.7 fL (78.0-98.0); Mean Platelet Volume 5.8 fL (7.4-10.4); Platelet Count 379 thou/uL (130-400); RBC Distribution Width 12.4 % (11.5-14.5); Red Blood Cell (RBC) Count 4.66 mill/uL (4.70-6.10); White Blood Cell (WBC) Count 9.1 thou/uL (4.8-10.8)
[2018-02-15 12:46] LABS: ALT (SGPT) 21 U/L (8-55); AST (SGOT) 13 U/L (5-34); Alkaline Phosphatase 80 U/L (40-150); Anion Gap 14 mmol/L (10-20); BUN (Urea Nitrogen) 9 mg/dL (8.4-25.7); Bilirubin, Total 0.3 mg/dL (0.2-1.2); CK (CPK) 54 U/L (30-200); Calc. Creatinine Clearance 0 mL/min (70-130); Calcium 9.4 mg/dL (7.8-10.44); Carbon Dioxide 22 mmol/L (23-31); Chloride 96 mmol/L (98-107); Estimated GFR-MDRD 74; Globulin 3.4 g/dL (2.4-3.5); Glucose 277 mg/dL (80-115); Potassium 4.1 mmol/L (3.5-5.1); Protein, Total 7.4 g/dL (5.8-8.1); Sodium 128 mmol/L (136-145)
[2018-02-15 12:55] LABS: CKMB 1.2 ng/mL (0-6.6); Troponin I Less than 0.010 ng/mL (< 0.028)
--- NOTE | 2018-02-15 13:09 | RAD ---
CHEST 1 VIEW: Date: 02/15/18 HISTORY: Chest pain. COMPARISON: Chest radiograph dated 08/05/17. FINDINGS: Lungs are without confluent air space consolidation, pneumothorax, or effusion. Chronic interstitial markings lung bases. No pneumothorax. No acute osseous abnormality. IMPRESSION: No acute intrathoracic abnormality. POS: [facility]
[2018-02-15] MEDS ORDERED: Ketorolac Tromethamine 30 MG/ML VIAL ONE (13:34)
--- NOTE | 2018-02-15 14:45 | CT ---
FACE CT WITH CONTRAST: HISTORY: Forehead swelling. Erythema. Headache. COMPARISON: None. TECHNIQUE: Post contrast face CT is performed in the axial plane. Reformatted images are submitted. FINDINGS: The visualized brain parenchyma is unremarkable. Adequate aeration of the visualized mastoid air leon ls. Bilateral ocular lenses are appropriately located. Both globes are intact. Retrobulbar fat is preserved. Symmetric attenuation of the optic nerves and ocular rectus muscles. The aerodigestive tract is patent. No obvious mucosal abnormality. Limited evaluation of the anterio r oral cavity due to dental amalgam artifact. The midline fatty raphe of the tongue is preserved. T he epiglottis has a normal caliber. The pre-epiglottic fat is preserved. The upper cervical spine is unremarkable. Vertebral body heights are maintained. Symmetric attenuation of the parotid and submandibular glands. Symmetric attenuation of the sternocl eidomastoid muscles. The visualized great vessels of the neck are unremarkable. Nonspecific right level II lymph node with preservation of the fatty hilum. There is extensive mucosal thickening with air-fluid level involving the bilateral frontal sinuses. There is partial opacification of bilateral ethmoid air cells. There is adequate aeration of the gloria ateral sphenoid sinuses. There is bilateral maxillary sinus mucosal thickening. The osseous margin of the sinuses are maintained. No hypertrophic or erosive changes. There is leftward deviation of the nasal septum. A small bony spur is noted. Mild bilateral frontal scalp swelling. No associated abscess. IMPRESSION: Extensive paranasal sinus disease. POS: [facility]
== END 2018-02-15 16:13 | disposition home or self-care (01) ==
LOC: ERS 11:45
DX: J32.9 Chronic sinusitis, unspecified (principal); K21.9 Gastro-esophageal reflux disease without esophagitis; N40.0 Benign prostatic hyperplasia without lower urinary tract symptoms; I10 Essential (primary) hypertension; G43.909 Migraine, unspecified, not intractable, without status migrainosus; E11.9 Type 2 diabetes mellitus without complications; J45.909 Unspecified asthma, uncomplicated; F41.9 Anxiety disorder, unspecified; F32.9 Major depressive disorder, single episode, unspecified; F25.9 Schizoaffective disorder, unspecified; F43.10 Post-traumatic stress disorder, unspecified; Z86.73 Personal history of transient ischemic attack (TIA), and cerebral infarction without residual deficits; Z79.82 Long term (current) use of aspirin; Z79.899 Other long term (current) drug therapy
CPT/HCPCS: 36415; 36416; 70487; 71045; 80053; 82553; 84484; 85025; 85652; 86140; 93005; 96374; J1885

== ENCOUNTER 2018-02-24 12:33 | Emergency (ER) | payer OTHER | END 2018-02-24 13:06 | disposition home or self-care (01) | LOC: ERS 12:33 | DX: F41.9 Anxiety disorder, unspecified (principal); K21.9 Gastro-esophageal reflux disease without esophagitis; I10 Essential (primary) hypertension; G43.909 Migraine, unspecified, not intractable, without status migrainosus; E11.9 Type 2 diabetes mellitus without complications; J45.909 Unspecified asthma, uncomplicated; F32.9 Major depressive disorder, single episode, unspecified; Z79.899 Other long term (current) drug therapy; Z79.82 Long term (current) use of aspirin | CPT/HCPCS: 93005 ==

== ENCOUNTER 2018-03-01 12:32 | Day surgery (SDC) | payer MEDICARE, MEDICAID ==
[2018-02-28 14:04] VITALS: BMI 31.3
[2018-03-01] MEDS ORDERED: Oxymetazoline HCl 0.05% ( 15 ML ) ONE ×2 (12:43→12:53)
[2018-03-01] MEDS ORDERED: Fentanyl 100 MCG/2 ML VIAL ONE ×2 (12:48)
[2018-03-01] MEDS ORDERED: Lidocaine 1% w/Epinephrine 1:100K 30 ML VIAL ONE (12:52)
[2018-03-01] MEDS ORDERED: Bacitracin Zinc Ointment 30 gm TUBE ONE (12:53)
[2018-03-01 12:56] LABS: Hemoglobin 13.3 g/dL (14.0-18.0)
[2018-03-01 13:16] LABS: Anion Gap 12 mmol/L (10-20); BUN (Urea Nitrogen) 8 mg/dL (8.4-25.7); Calc. Creatinine Clearance 91 mL/min (70-130); Calcium 9.2 mg/dL (7.8-10.44); Carbon Dioxide 27 mmol/L (23-31); Chloride 93 mmol/L (98-107); Estimated GFR-MDRD 71; Glucose 150 mg/dL (80-115); Potassium 3.4 mmol/L (3.5-5.1); Sodium 129 mmol/L (136-145)
[2018-03-01] MEDS ORDERED: Lidocaine 1% PF 5 ML VIAL ONE (13:35)
[2018-03-01] MEDS ORDERED: PROPOFOL 200 MG/20 ML VIAL ONE (13:35)
[2018-03-01] MEDS ORDERED: Ondansetron HCl/PF 4 MG/2 ML Vial ONE (13:35)
[2018-03-01] MEDS ORDERED: Esmolol 100 MG/10 ML VIAL ONE (13:35)
[2018-03-01] MEDS ORDERED: Succinylcholine Chloride 20 MG/ML 10 ml SYRINGE FS ONE (13:35)
[2018-03-01] MEDS ORDERED: methylPREDNISolone Acetate 40 mg/ml Vial ONE (13:47)
--- NOTE | 2018-03-01 14:39 | OP ---
PREOPERATIVE DIAGNOSES: Chronic sinusitis, recurrent sinusitis, nasal polyposis, deviated septum, hy pertrophic inferior turbinates. POSTOPERATIVE DIAGNOSES: Chronic sinusitis, recurrent sinusitis, nasal polyposis, deviated septum, h ypertrophic inferior turbinates. PROCEDURES PERFORMED: 1. Bilateral nasal endoscopy with maxillary antrostomy with removal of tissue. 2. Bilateral nasal endoscopy with total ethmoidectomy. 3. Bilateral nasal endoscopy with frontal sinusotomy. 4. Bilateral endoscopy with sphenoidotomy and septoplasty. 5. Bilateral nasal endoscopy with submucosal resection of inferior turbinates. 6. Nasal endoscopy with polypectomy. FINDINGS: The patient had extensive polyps and purulence encountered in all sinuses. He also had a spur in his left septum posteriorly that was impinging into the inferior turbinate and their own righ t were quite large. PROCEDURE IN DETAIL: After consent was obtained, the patient was identified, brought to the operatin g room, and placed on the operating room table in the supine position. Consent was obtained, notifyi ng the patient of the possibility of additional infections, bleeding, brain injury, and eye/orbital i njury. The patient was placed on the operating room table, and general endotracheal anesthesia and intravenous access was obtained. The patient was then positioned, prepped and draped for endoscopic sinus surgery. Nasal preparation included trimming nasal vestibular hairs and spraying in topical Af rin. We then placed Afrin topical solution on nasal pledgets and strategically located them intranas ally. The perinasal mucosa was injected with 1% lidocaine with 1:100,000 epinephrine in the submucop erichondrial plane of the septum, lateral nasal wall, and anterior to the uncinate. The patient was then prepped and draped in a sterile fashion and positioned for endoscopic sinus surgery. Endoscopic Sinus Surgery: With the 0-degree endoscope, the patient underwent systematic nasal endosc opy. There were no suspicious internasal masses or lesions identified. We then focused our attentio n to the osteomeatal complex region under the middle turbinate. Maegan Bullosa: The maegan bullosa was identified and entered with a sickle blade. The lateral aspe ct of the maegan bullosa was meticulously resected while leaving the medial most aspect to form the n ew middle turbinate. Attention was made not to violate the mucosa. The straight biting punches and micro-debrider were used to remove shrouds of mucosa and bony debris. Maxillary Antrostomy: The uncinate was then identified and the extent of the uncinate was appreciate d by out-fracturing the uncinate with the ball-tip probe. We then used the sickle blade to disarticu late the uncinate from the lateral nasal wall. This was then removed with straight biting and upbiti ng punches with the remaining shrouds of mucosa and bony septum removed with the micro-debrider. The natural os of the maxillary sinus was then identified and enlarged with the maxillary punches and ba ck biting forceps. Total Ethmoidectomy: The anterior face of the ethmoid bulla was entered and with the micro-debrider, dissection continued posteriorly to the ground lamella. The limits of dissection included the inser tion of the middle turbinate, medial orbital wall, and base of skull. We similarly identified the fr ontal recess and removed shrouds of bone and debris in that region to obtain patency into the agger n asi region and frontal recess. We then entered the ground lamella and its anteroinferior aspect and proceeded posteriorly, opening the posterior ethmoid air-cell system. Again, the limits of dissectio n included the base of skull and medial orbital wall. Sphenoidotomy: The anterior face of the sphenoid was identified and entered in its extreme anteroinf erior aspect. A sphenoid punch was then used to enlarge the sphenoidotomy and no injury to the optic nerve or internal carotid artery occurred. Outfracture of the Inferior Turbinates: The inferior turbinates were visualized under endoscopic vis ualization and outfractured with the elevator. The inferolateral edge of the inferior turbinate was then cauterized along its length with the suction cautery without difficulty. Outfracture & Cautery of the Inferior Turbinates: The inferior turbinates were visualized with a 0-d egree endoscope and outfractured with a [place] elevator. The inferior medial aspect was cauterized wi th the electrocautery. Hemostasis was obtained . After adequate airway was established, we turned o ur attention to the contralateral side and used a similar procedure. Again, a [place] elevator was use d to outfracture inferior turbinates under endoscopic visualization. With a suction cautery, the srinath e inferior medial aspect was cauterized under direct visualization along the length of the inferior t jose luis. Septoplasty: After local anesthesia was infiltrated into the submucoperichondrial plane, a standard Davie incision was made with a #15 blade down to the level of the septal cartilage. The caudal kit vator was used to elevate the mucoperichondrium from the underlying cartilage. We then proceeded bey ond the bony cartilaginous junction and elevated the bony periosteum as well. Great attention was pa id to the spur to prevent rent formation in the septal flap. A transcartilaginous incision was then m niranjan, while preserving an adequate dorsal and caudal cartilaginous strut for tip support. The deforme d cartilage was removed and disarticulated from the bony cartilaginous junction and maxillary crest. This was placed in saline and would later be crushed and returned to the mucoperichondrial envelope. We then elevated the contralateral periosteum from the bony cartilaginous region and removed the de formed portions of the bone and bony spurs. The cartilage was then crushed and placed back into the mucoperichondrial envelope and the mucosa was re-approximated with a quilting stitch composed of rapi dly absorbent gut suture. The Davie incision was also closed with interrupted gut suture. At the completion of the case, Johnson splints were placed and suture secured to the caudal septum. At this point, we then turned our attention to the contralateral side and proceeded with endoscopic s inus surgery. At the completion of the case, Rice keel splints were placed in the ethmoid cavities after the ethmoi dectomy. There were no complications. The patient tolerated the procedure well and was discharged t o the recovery room in stable condition prior to return to the preoperative Day Stay with [facility]. Prescriptions for pain medication and antibiotics were provided. The patient received intramuscular Depo-Medrol during the case.
[2018-03-01] MEDS ORDERED: Sodium Chloride For Inhalation 0.9% 3 ML NEB ONE (14:48)
[2018-03-01] MEDS ORDERED: Albuterol Sulfate 1.25 MG/3 ML NEB ONE (14:48)
[2018-03-01] MEDS ORDERED: Promethazine HCl 25 MG/ML VIAL IM/IV PRN (15:06)
[2018-03-01] MEDS ORDERED: Ondansetron HCl/PF 4 MG/2 ML Vial IVP PRN (15:06)
[2018-03-01] MEDS ORDERED: Albuterol Sulfate 1.25 MG/3 ML NEB NEB SCH (15:15)
== END 2018-03-01 16:32 | disposition home or self-care (01) ==
LOC: SDC 12:32
PROVIDERS: ATTEND Specialist
PROC: 09TL8ZZ Resection of Nasal Turbinate, Via Natural or Artificial Opening Endoscopic (ICD-10-PCS; principal; 2018-03-01)
PROC: 09TV8ZZ Resection of Left Ethmoid Sinus, Via Natural or Artificial Opening Endoscopic (ICD-10-PCS; 2018-03-01)
PROC: 09TU8ZZ Resection of Right Ethmoid Sinus, Via Natural or Artificial Opening Endoscopic (ICD-10-PCS; 2018-03-01)
PROC: 09BR8ZZ Excision of Left Maxillary Sinus, Via Natural or Artificial Opening Endoscopic (ICD-10-PCS; 2018-03-01)
PROC: 09BQ8ZZ Excision of Right Maxillary Sinus, Via Natural or Artificial Opening Endoscopic (ICD-10-PCS; 2018-03-01)
PROC: 099X8ZZ Drainage of Left Sphenoid Sinus, Via Natural or Artificial Opening Endoscopic (ICD-10-PCS; 2018-03-01)
PROC: 099W8ZZ Drainage of Right Sphenoid Sinus, Via Natural or Artificial Opening Endoscopic (ICD-10-PCS; 2018-03-01)
PROC: 09SL8ZZ Reposition Nasal Turbinate, Via Natural or Artificial Opening Endoscopic (ICD-10-PCS; 2018-03-01)
PROC: 09SM0ZZ Reposition Nasal Septum, Open Approach (ICD-10-PCS; 2018-03-01)
DX: J32.4 Chronic pansinusitis (principal); J33.9 Nasal polyp, unspecified; J34.3 Hypertrophy of nasal turbinates; J34.2 Deviated nasal septum; I10 Essential (primary) hypertension; Z79.84 Long term (current) use of oral hypoglycemic drugs; Z79.899 Other long term (current) drug therapy; Z88.8 Allergy status to other drugs, medicaments and biological substances
CPT/HCPCS: 36415; 80048; 85014; 85018; 87070; 87205; J0131; J1030; J2001; J3010

== ENCOUNTER 2018-03-04 11:15 | Emergency (ER) | payer MEDICARE, OTHER | END 2018-03-04 12:20 | disposition home or self-care (01) | LOC: ERS 11:15 | DX: G89.18 Other acute postprocedural pain (principal); R51 Headache; K21.9 Gastro-esophageal reflux disease without esophagitis; N40.0 Benign prostatic hyperplasia without lower urinary tract symptoms; I10 Essential (primary) hypertension; G43.909 Migraine, unspecified, not intractable, without status migrainosus; E11.9 Type 2 diabetes mellitus without complications; J45.909 Unspecified asthma, uncomplicated; Z86.73 Personal history of transient ischemic attack (TIA), and cerebral infarction without residual deficits; F41.9 Anxiety disorder, unspecified; F32.9 Major depressive disorder, single episode, unspecified; F25.9 Schizoaffective disorder, unspecified; F43.10 Post-traumatic stress disorder, unspecified; Z79.899 Other long term (current) drug therapy; Z79.82 Long term (current) use of aspirin; Z79.84 Long term (current) use of oral hypoglycemic drugs | CPT/HCPCS: 99283 ==

== ENCOUNTER 2018-03-06 08:56 | Emergency (ER) | payer MEDICARE, MEDICAID ==
[2018-03-06] MEDS ORDERED: cloNIDine 0.1 MG TAB ONE (09:40)
[2018-03-06] MEDS ORDERED: Metoprolol Tartrate 50 MG TAB ONE (09:40)
[2018-03-06 09:41] LABS: #Eosinphils 0.1 thou/uL (0.0-0.7); #Lymphocytes 0.8 thou/uL (1.20-3.40); #Monocytes 0.7 thou/uL (0.11-0.59); %Basophils 0.5 % (0.0-1.0); %Eosinophils 1.2 % (0.0-10.0); %Lymphocytes 12.3 % (21.0-51.0); %Monocytes 10.9 % (0.0-10.0); %Neutrophils 75.2 % (42.0-75.0); Hemoglobin 13.1 g/dL (14.0-18.0); Mean Corpuscular HGB CONC 32.4 g/dL (32.0-36.0); Mean Corpuscular Hemoglobin 29.1 pg (27.0-31.0); Mean Corpuscular Volume 89.9 fL (78.0-98.0); Mean Platelet Volume 6.2 fL (7.4-10.4); Platelet Count 323 thou/uL (130-400); Red Blood Cell (RBC) Count 4.49 mill/uL (4.70-6.10); White Blood Cell (WBC) Count 6.6 thou/uL (4.8-10.8)
[2018-03-06 09:57] LABS: Anion Gap 9 mmol/L (10-20); BUN (Urea Nitrogen) 9 mg/dL (8.4-25.7); Calc. Creatinine Clearance 0 mL/min (70-130); Calcium 9.8 mg/dL (7.8-10.44); Carbon Dioxide 31 mmol/L (23-31); Chloride 94 mmol/L (98-107); Estimated GFR-MDRD 75; Glucose 216 mg/dL (80-115); Potassium 3.9 mmol/L (3.5-5.1); Sodium 130 mmol/L (136-145)
[2018-03-06 10:04] LABS: CKMB 1.8 ng/mL (0-6.6); Troponin I Less than 0.010 ng/mL (< 0.028)
--- NOTE | 2018-03-06 10:45 | RAD ---
CHEST TWO VIEWS: History: Chest pain. Comparison: 02-15-18 FINDINGS: Cardiac silhouette is unremarkable. Pulmonary vasculature upper limits of normal. Mediastinum is midl ine. No confluent airspace consolidation, pneumothorax, or pleural fluid. Degenerative changes of the thoracic spine. IMPRESSION: No active cardiopulmonary abnormalities are demonstrated. POS: [facility]
[2018-03-06 12:35] LABS: Troponin I Less than 0.010 ng/mL (< 0.028)
--- NOTE | 2018-03-10 13:36 | EKG ---
Test Reason : CHEST PAIIN Blood Pressure : / mmHG Vent. Rate : 092 BPM Atrial Rate : 092 BPM P-R Int : 156 ms QRS Dur : 098 ms QT Int : 356 ms P-R-T Axes : 057 -30 006 degrees QTc Int : 440 ms Normal sinus rhythm Left axis deviation Voltage criteria for left ventricular hypertrophy Lateral infarct , age undetermined Abnormal ECG Confirmed by TIBURCIO RUST, GISELL Cedeno ([id number]), commercial production editor KATRIN EDGE ([id number]) on 03/10/2018 1:35:31 PM Referred By: Confirmed By:GISELL DEY MD
== END 2018-03-06 13:01 | disposition home or self-care (01) ==
LOC: ERS 08:56
DX: F41.9 Anxiety disorder, unspecified (principal); R07.9 Chest pain, unspecified; I10 Essential (primary) hypertension; K21.9 Gastro-esophageal reflux disease without esophagitis; N40.0 Benign prostatic hyperplasia without lower urinary tract symptoms; G43.909 Migraine, unspecified, not intractable, without status migrainosus; E11.9 Type 2 diabetes mellitus without complications; J45.909 Unspecified asthma, uncomplicated; Z86.73 Personal history of transient ischemic attack (TIA), and cerebral infarction without residual deficits; F31.9 Bipolar disorder, unspecified; F25.9 Schizoaffective disorder, unspecified; F43.10 Post-traumatic stress disorder, unspecified; Z79.899 Other long term (current) drug therapy; Z79.84 Long term (current) use of oral hypoglycemic drugs; Z79.82 Long term (current) use of aspirin
CPT/HCPCS: 36415; 71046; 80048; 82553; 84484; 85025; 93005

== ENCOUNTER 2018-03-08 03:24 | Emergency (ER) | payer MEDICARE, MEDICAID ==
[2018-03-08] MEDS ORDERED: Oxymetazoline HCl 0.05% ( 15 ML ) ONE (03:55)
[2018-03-08] MEDS ORDERED: Lidocaine 1% w/Epinephrine 1:100K 20 ML VIAL ONE (03:57)
[2018-03-08 04:05] LABS: #Eosinphils 0.2 thou/uL (0.0-0.7); #Lymphocytes 1.5 thou/uL (1.20-3.40); #Neutrophils 4.7 thou/uL (1.40-6.50); %Basophils 0.2 % (0.0-1.0); %Eosinophils 2.3 % (0.0-10.0); %Lymphocytes 20.9 % (21.0-51.0); %Monocytes 13.5 % (0.0-10.0); Hemoglobin 12.9 g/dL (14.0-18.0); Mean Corpuscular HGB CONC 33.2 g/dL (32.0-36.0); Mean Corpuscular Hemoglobin 29.7 pg (27.0-31.0); Mean Corpuscular Volume 89.5 fL (78.0-98.0); Mean Platelet Volume 6.1 fL (7.4-10.4); Platelet Count 299 thou/uL (130-400); RBC Distribution Width 11.9 % (11.5-14.5); Red Blood Cell (RBC) Count 4.35 mill/uL (4.70-6.10); White Blood Cell (WBC) Count 7.4 thou/uL (4.8-10.8)
[2018-03-08 04:11] LABS: PTT 27.6 SEC (22.9-36.1); Prothrombin Time 12.7 SEC (12.0-14.7)
== END 2018-03-08 04:51 | disposition home or self-care (01) ==
LOC: ERS 03:24
DX: R04.0 Epistaxis (principal); K21.9 Gastro-esophageal reflux disease without esophagitis; N40.0 Benign prostatic hyperplasia without lower urinary tract symptoms; I10 Essential (primary) hypertension; G43.909 Migraine, unspecified, not intractable, without status migrainosus; E11.9 Type 2 diabetes mellitus without complications; J45.909 Unspecified asthma, uncomplicated; Z86.73 Personal history of transient ischemic attack (TIA), and cerebral infarction without residual deficits; F41.9 Anxiety disorder, unspecified; F32.9 Major depressive disorder, single episode, unspecified; F25.9 Schizoaffective disorder, unspecified; F43.10 Post-traumatic stress disorder, unspecified; Z79.899 Other long term (current) drug therapy; Z79.84 Long term (current) use of oral hypoglycemic drugs; Z79.82 Long term (current) use of aspirin
CPT/HCPCS: 30903; 85025; 85610; 85730; J2001

== ENCOUNTER 2018-04-25 19:03 | Emergency (ER) | payer MEDICARE, OTHER ==
[2018-04-25 19:28] LABS: #Eosinphils 0.1 thou/uL (0.0-0.7); #Lymphocytes 1.1 thou/uL (1.20-3.40); #Monocytes 0.7 thou/uL (0.11-0.59); %Basophils 0.6 % (0.0-1.0); %Eosinophils 1.9 % (0.0-10.0); %Lymphocytes 16.2 % (21.0-51.0); %Monocytes 10.3 % (0.0-10.0); Hemoglobin 11.9 g/dL (14.0-18.0); Mean Corpuscular HGB CONC 33.6 g/dL (32.0-36.0); Mean Corpuscular Hemoglobin 29.4 pg (27.0-31.0); Mean Corpuscular Volume 87.6 fL (78.0-98.0); Mean Platelet Volume 6.7 fL (7.4-10.4); Platelet Count 297 thou/uL (130-400); RBC Distribution Width 12.4 % (11.5-14.5); Red Blood Cell (RBC) Count 4.06 mill/uL (4.70-6.10)
--- NOTE | 2018-04-25 19:40 | RAD ---
AP CHEST: 04/25/18 HISTORY: Chest pain. Lungs are clear. No infiltrate or vascular congestion. Heart size is upper normal and stable. IMPRESSION: No acute lung process. POS: [facility]
[2018-04-25 19:50] LABS: ALT (SGPT) 19 U/L (8-55); AST (SGOT) 18 U/L (5-34); Alkaline Phosphatase 64 U/L (40-150); Anion Gap 12 mmol/L (10-20); BUN (Urea Nitrogen) 16 mg/dL (8.4-25.7); Bilirubin, Total 0.3 mg/dL (0.2-1.2); CK (CPK) 99 U/L (30-200); Calc. Creatinine Clearance 0 mL/min (70-130); Calcium 9.2 mg/dL (7.8-10.44); Carbon Dioxide 27 mmol/L (23-31); Chloride 97 mmol/L (98-107); Estimated GFR-MDRD 70; Globulin 3.2 g/dL (2.4-3.5); Glucose 155 mg/dL (80-115); Lipase 29 U/L (8-78); Potassium 3.9 mmol/L (3.5-5.1); Protein, Total 7.2 g/dL (5.8-8.1); Sodium 132 mmol/L (136-145)
[2018-04-25 19:53] LABS: CKMB 1.5 ng/mL (0-6.6); Troponin I Less than 0.010 ng/mL (< 0.028)
[2018-04-25] MEDS ORDERED: Nitroglycerin 2% Ointment 1 INCH/1 GM Packet ONE ×2 (20:06→20:20)
[2018-04-25 22:41] LABS: Troponin I Less than 0.010 ng/mL (< 0.028)
== END 2018-04-25 23:28 | disposition home or self-care (01) ==
LOC: ERS 19:03
DX: R07.2 Precordial pain (principal); K21.9 Gastro-esophageal reflux disease without esophagitis; N40.0 Benign prostatic hyperplasia without lower urinary tract symptoms; I10 Essential (primary) hypertension; G43.909 Migraine, unspecified, not intractable, without status migrainosus; E11.9 Type 2 diabetes mellitus without complications; J45.909 Unspecified asthma, uncomplicated; Z86.73 Personal history of transient ischemic attack (TIA), and cerebral infarction without residual deficits; F41.9 Anxiety disorder, unspecified; F32.9 Major depressive disorder, single episode, unspecified; F43.10 Post-traumatic stress disorder, unspecified; Z79.899 Other long term (current) drug therapy; Z79.82 Long term (current) use of aspirin; Z79.84 Long term (current) use of oral hypoglycemic drugs
CPT/HCPCS: 36415; 71045; 80053; 82553; 83690; 84484; 85025; 93005

== ENCOUNTER 2018-11-29 12:39 | Emergency (ER) | payer MEDICARE, OTHER ==
[2018-11-29] MEDS ORDERED: Ketorolac Tromethamine 60 MG/2 ML VIAL ONE (14:42)
[2018-11-29] MEDS ORDERED: diphenhydrAMINE 50 MG/ML VIAL ONE (14:43)
--- NOTE | 2018-11-30 12:56 | EKG ---
Test Reason : Blood Pressure : / mmHG Vent. Rate : 063 BPM Atrial Rate : 063 BPM P-R Int : 180 ms QRS Dur : 100 ms QT Int : 412 ms P-R-T Axes : 051 -30 003 degrees QTc Int : 421 ms Normal sinus rhythm Left axis deviation Voltage criteria for left ventricular hypertrophy Abnormal ECG Confirmed by HODA RUST, JAMES ([id number]), story editor TOMASA DAY ([id number]) on 11/30/2018 12:56:28 PM Referred By: Confirmed By:JAMES DRUMMOND MD
== END 2018-11-29 15:10 | disposition home or self-care (01) ==
LOC: ERS 12:39
DX: G43.909 Migraine, unspecified, not intractable, without status migrainosus (principal); F41.9 Anxiety disorder, unspecified
CPT/HCPCS: 93005; 96372; J1200; J1885

== ENCOUNTER 2025-04-11 05:42 | Day surgery (SDC) | payer OTHER ==
[2025-04-10 09:43] VITALS: BMI 22.6
[2025-04-11] MEDS ORDERED: GLYCOPYRROLATE/PF 0.2 MG/ML VIAL ONE (07:24)
[2025-04-11] MEDS ORDERED: PROPOFOL 200 MG/20 ML VIAL ONE (07:37)
[2025-04-11] MEDS ORDERED: PHENYLEPHRINE-NS 100 MCG/ML 10 ML SYRINGE ONE (08:22)
== END 2025-04-11 08:45 | disposition home or self-care (01) ==
LOC: SDC 05:42
PROVIDERS: ATTEND Internal Medicine Gastroenterology
PROC: 0DJD8ZZ Inspection of Lower Intestinal Tract, Via Natural or Artificial Opening Endoscopic (ICD-10-PCS; principal; 2025-04-11)
PROC: 0DD98ZX Extraction of Duodenum, Via Natural or Artificial Opening Endoscopic, Diagnostic (ICD-10-PCS; 2025-04-11)
PROC: 0DD68ZX Extraction of Stomach, Via Natural or Artificial Opening Endoscopic, Diagnostic (ICD-10-PCS; 2025-04-11)
PROC: 0DB68ZZ Excision of Stomach, Via Natural or Artificial Opening Endoscopic (ICD-10-PCS; 2025-04-11)
DX: Z12.11 Encounter for screening for malignant neoplasm of colon (principal); K29.50 Unspecified chronic gastritis without bleeding; K31.7 Polyp of stomach and duodenum; R19.5 Other fecal abnormalities; K21.9 Gastro-esophageal reflux disease without esophagitis; J45.909 Unspecified asthma, uncomplicated; Z79.899 Other long term (current) drug therapy; Z88.8 Allergy status to other drugs, medicaments and biological substances
CPT/HCPCS: 43239; 43251; 45330; J2704; J3490; 88305; 88342